=== PATIENT | female | born 1960 | race Caucasian/White ===

== ENCOUNTER → 2021-03-07 13:21 | Outpatient (BNVA) | payer OTHER, SELFPAY | PROVIDERS: PCP Internal Medicine; Visit Provider Hospitalist ==

== ENCOUNTER 2021-03-17 15:38 | Outpatient (REF) | payer OTHER, SELFPAY ==
--- NOTE | 2021-03-17 17:12 | PFT_ITS ---
Forced vital capacity, FEV1, KHJ03-07, and MVV are normal. Post bronchodilator therapy, there is no change. Total lung capacity and residual volume normal. Diffusion capacity slightly decreased. CONCLUSION: Normal pulmonary function test. No evidence of obstructive or restrictive pulmonary disorder. Slight decrease in diffusion capacity may be nonspecific or due to presence of pulmonary emphysema. Clinical correlation recommended. MD ABDULAZIZ Perez/GARCIA / [id number]
== END 2021-03-17 15:39 | disposition home or self-care (01) ==
LOC: HO.RESP 15:38
PROVIDERS: PCP Internal Medicine; Visit Provider Hospitalist
DX: R91.8 Other nonspecific abnormal finding of lung field (principal)
CPT/HCPCS: 94060; 94727; 94729

== ENCOUNTER → 2021-03-28 07:41 | Outpatient (BNVA) | payer OTHER, SELFPAY | PROVIDERS: PCP Internal Medicine; Visit Provider Surgery | DX: R91.1 Solitary pulmonary nodule (principal); J41.0 Simple chronic bronchitis; F17.210 Nicotine dependence, cigarettes, uncomplicated; Z79.899 Other long term (current) drug therapy | CPT/HCPCS: 99212 ==

== ENCOUNTER → 2021-07-16 09:43 | Outpatient (BNVA) | payer OTHER, SELFPAY | PROVIDERS: PCP Internal Medicine; Visit Provider Hospitalist ==

== ENCOUNTER → 2021-10-09 09:24 | Outpatient (BNVA) | payer OTHER, SELFPAY | PROVIDERS: PCP Internal Medicine; Visit Provider Hospitalist ==

== ENCOUNTER → 2021-11-14 10:02 | Outpatient (BNVA) | payer OTHER, SELFPAY | PROVIDERS: PCP Internal Medicine; Visit Provider Surgery | DX: C34.91 Malignant neoplasm of unspecified part of right bronchus or lung (principal); Z79.899 Other long term (current) drug therapy; Z79.4 Long term (current) use of insulin; Z87.891 Personal history of nicotine dependence | CPT/HCPCS: 99212 ==

== ENCOUNTER → 2022-01-05 10:04 | Outpatient (BNVA) | payer OTHER, SELFPAY | PROVIDERS: PCP Internal Medicine; Visit Provider Hospitalist | DX: R91.8 Other nonspecific abnormal finding of lung field (principal) ==

== ENCOUNTER → 2022-02-20 08:30 | Outpatient (BNVA) | payer OTHER, SELFPAY | PROVIDERS: PCP Internal Medicine; Visit Provider Surgery | DX: C34.91 Malignant neoplasm of unspecified part of right bronchus or lung (principal) | CPT/HCPCS: 99212 ==

== ENCOUNTER → 2022-07-17 10:43 | Outpatient (BNVA) | payer OTHER, SELFPAY | PROVIDERS: PCP Internal Medicine; Visit Provider Surgery | DX: C34.91 Malignant neoplasm of unspecified part of right bronchus or lung (principal) | CPT/HCPCS: 99212 ==

== ENCOUNTER → 2023-01-29 09:51 | Outpatient (BNVA) | payer OTHER, SELFPAY | PROVIDERS: PCP Internal Medicine; Visit Provider Hospitalist ==

== ENCOUNTER 2023-08-06 09:49 | Outpatient (AMB) | payer OTHER, SELFPAY ==
[2023-08-06 09:54] VITALS: BP 130/60; PULSE 90; O2SAT 96; BMI 38.4
--- NOTE | 2023-08-06 09:54 | A.OFFVIS_ITS ---
Intake Vital Signs 08/06/23 09:54 Height 5 ft 6 in Weight 238 lb BMI 38.4 BP 130/60 Blood Pressure Location Lt brachial Position Sitting Pulse 90 Pulse Source Pulse Oximeter Pulse Oximetry (%) 96 Oxygen Delivery Method Room Air Intake Visit Reasons: copd Intake Note: pt is here for follow up and states shortness of breath with exertion. Buildings And Grounds Director Required: No Allergies cephalexin Allergy (Severe, Verified 08/06/23 09:58) Swollen Tongue codeine Allergy (Severe, Verified 08/06/23 09:58) Nausea and Vomiting lisinopril Allergy (Severe, Verified 08/06/23 09:58) Swollen Tongue metformin Allergy (Severe, Verified 08/06/23 09:58) Swollen Tongue HPI HPI Comments History of Present Illness Details The Patient is a 63-year-old woman with a known history of tobacco dependency and pulmonary nodules. She had been doing very well. She has been participating in the lung cancer screening program for several years now at [facility]. More recently she had a CT scan of the chest demonstrating a new 1.1 cm right-sided pulmonary nodule that was concerning in appearance in size. Patient denied any significant symptoms as far as she is aware. Denies any coughing or any hemoptysis. She denies any weight loss or night sweats. Her appetite is still good. We personally reviewed her CT scan in the office I explained to her my concerns with the size the nodule in the appearance and based on the CT scan pictures in appears to be malignant process in to improving otherwise. Therefore at this point will request urgent pulmonary function studies and urgent PET scan. he these results reasonable been we will facilitate a surgical resection. 07/16/2021 the patient is here for a pulmonary follow-up visit. Since we spoke to patient did undergo right-sided lobectomy at [facility]. The patient tolerated surgery well. The pathology demonstrated squamous cell carcinoma. no evidence of any lymph node metastases. All the margins were negative which is reassuring. However, with some evidence of visceral pleura invasion. The patient is squamous cell carcinoma was not responsive to PDL1. She did follow-up with Oncology. At this point the decision was to not give chemotherapy and to monitor closely. The patient will undergo CT imaging of the chest every 6 months. Right now will plan to schedule the 1st follow-up CT scan for October 19- which would be 6 months from her PET scan. Patient was able to quit smoking altogether. However still struggle. She has not had any nicotine products the last month. At this point I encouraged her to continue pressing forward and avoiding any nicotine supplementation at this point she continues to use the Advair 500. her respiratory status is stable. She can continue that dose and we can reassess on her follow-up visit. 10/09/2021 the patient is here for pulmon [place] follow-up visit. The patient was exposed to COVID. After she started developing a cough productive in nature. She was treated with a antibiotic. The patient is no better. Now she is expectorating also feeling chest tightness and some wheezing. Indeed she does have some wheezing on examination. Likely has a COPD exacerbation due to the viral syndrome. In addition to that prior to getting sick she did have a CT scan of the chest to follow up with her pulmonary nodules. The patient is status post a right upper lobe lobectomy consistent with squamous cell carcinoma. It appeared that in the recent CT scan of the chest 1 of the nodular densities measuring 6 mm slightly increased now to 8 mm in size. This is in the right lower lobe posterior pleural-based area. All the other nodules were otherwise stable. Will resend the patient at the multidisciplinary rounds. In the meantime will plan to repeat the CT scan in 3 months. The patient also will be treated for a post fell bacterial infection with the COPD exacerbation as well. She also has a nebulizer she will use that as well. 01/05/2022 the patient is here for a pulmonary follow-up visit. Since we last spoke the patient did have a brief viral syndrome resulting in a COPD exacerbation. This is COVID negative. She had just recovered from COVID back September. The patient did have a repeat CT scan of the chest done in November to follow-up abnormalities noted on her previous CT scan done September. It appeare d that she has no significant changes based on her most recent CT scan from November. Therefore follow-up with a CT scan in 6 months time. The patient completed a course of prednisone. She has been doing well. Still having some shortness of breath but her oxygen levels have been reassuring in the high 90s. 07/17/2022 the patient is here for a pul monary follow-up visit. Overall the patient has been complaining of increasing chest tightness and congestion. She is also on notices some increased shortness of breath. She has been using Advair now for some time. It is partially helpful. She did have a recent CT scan of the chest just in the beginning of the month which demonstrated stable pulmonary nodules. She will follow-up with the thoracic surgeon later today. At this point does not appear that there is any worsening suspicious nodules. The patient will continue to have serial CT scans to further monitor. In addition to this, the CT scan also demonstrates some evidence of ground-glass opacities suggesting pneumonitis primarily in the upper lung zones. Typically this could be a hypersensitivity type of reaction. Appears to be more subacute since the patient is not very symptomatic. She is not aware of any mold exposure or any birds or pets. Although this likely something in her surrounding that is affecting her breathing. Will switch her inhaler to Trelegy. If the patient is no better will consider her blood work to assess for different etiologies for pneumonitis. 01/29/2023 the patient is here for a pulmonary follow-up visit. The patient overall is doing well. She continues on the Advair. She has been noticing some chest tightness and wheezing. Intermittently. She does use her rescue inhaler a couple times a week. The patient did undergo a CT scan of the [facility] recently [facility] I personally reviewed. She does have postoperative changes which are unchanged. She also has pulmonary nodules that are intermediate in size and also have not changed in 6 months. This is reassuring. The patient will continue to follow closely with the serial CT scan protocol for thoracic surgery. We the patient also will be optimized with respiratory therapy by switching her over to Trelegy once she completes her medications. Otherwise the patient follow-up in 6 to 8 months. If she has any issues prior to that she is to call the office for an earlier evaluation. 08/06/2023 the patient is here for a pulm onary follow-up visit. The patient has been complaining of increasing dyspnea on exertion. Moderate severity. Has been using the Advair that she finally ran out so will go ahead and switch over to Trelegy inhaler. She has not had a CT scan as of yet. Her last CT scan was back in June 2022. Will go ahead and request a CT scan at this time to follow-up with her history of lung cancer and also pulmonary nodules. She should be getting CT scan yearly. The patient does have some wheezing on examination. Will go ahead and optimize respiratory therapy. If she is no better I will prescribe her a steroid pack so she can take it see if there is any improvement. [facility] Medical History Adrenal adenoma COPD (chronic obstructive pulmonary disease) Depression Hyperlipidemia Hypertension Lung cancer (~2020) Neurodermatitis Obesity Personal history of nicotine dependence Pulmonary nodules Tubular adenoma of colon (~2006) Type 2 diabetes mellitus (~2002) Surgical History History of History of cataract surgery (~2020) History of colonoscopy History of endoscopy History of hemorrhoidectomy History of lobectomy of lung (~2020) Family History Father Lung cancer Mother Bladder cancer Other Lymphoma Social History (Reviewed 08/06/23 @ 09:59 by Fozia Young [facility]) Patient Tobacco Use Status: Former Tobacco user Quit Date: 04/14/2021 Tobacco use type: Cigarette Years Smoked: 44 years Quit 04/14/21 Review of Systems Const Denies lethargy, Denies malaise, Denies night sweats, Denies poor appetite and Denies weight loss ENT Denies change in voice, Denies lip swelling, Denies mouth pain, Denies nasal congestion, Denies nasal discharge and Denies tongue swelling Card Denies chest pain and Reports dyspnea on exertion Resp Denies change in phlegm color, Reports chest congestion, Reports cough, Reports dyspnea on exertion and Reports wheezing GI Denies abdominal pain Musc Denies no additional complaints Neuro Denies Neuro-related abnormal movements Psych Denies no additional complaints Edwin/Lymph Denies easy bleeding and Denies lymphadenopathy Aller/Immun Denies lip swelling, Denies tongue swelling and Reports wheezing Physical Exam Vital Signs: Last Vital Signs Pulse 90 08/06/23 09:54 BP 130/60 08/06/23 09:54 Pulse Ox 96 08/06/23 09:54 Oxygen Delivery Method Room Air 08/06/23 09:54 BMI result Body Mass Index 38.4 Const General: alert Neck Neck: Yes normal visual inspection, Yes full ROM and Yes no lymphadenopathy Chest Chest palpation & inspection: normal inspection of the chest Resp Auscultation: wheezes and diminished lung sounds Cardio Rate: regular rate Rhythm: regular rhythm Heart sounds: S1 normal heart sound present and S2 normal heart sound present GI Palpation (GI): Soft to palpation and nontender Auscultation: normal bowel sounds Skin General skin exam: rashes and/or lesions noted Assessment & Plan Assessment & Plan (1) Pulmonary nodules: Code(s): R91.8 - Other nonspecific abnormal finding of lung field (2) COPD (chronic obstructive pulmonary disease): Code(s): J44.9 - Chronic obstructive pulmonary disease, unspecified Qualifiers: COPD type: chronic bronchitis Chronic bronchitis type: simple Qualified Code(s): J41.0 - Simple chronic bronchitis (3) Lung cancer: Onset Date: ~2020 Comment: (Squamous Cell Carcinoma - pT2a pN0 - Stage Ib- s/p RUL lobectomy 04/2021) Code(s): C34.90 - Malignant neoplasm of unspecified part of unspecified bronchus or lung Qualifiers: Laterality: right Lung location: unspecified part of lung Qualified Code(s): C34.91 - Malignant neoplasm of unspecified part of right bronchus or lung Plan start Trelegy 200 start medrol pack if no better KAVEH as needed Has a nebulizer CT chest [facility] continue smoking cessation F/U 4 months Orders: Orders CT chest wo IV con Today C34.91 - Malignant neoplasm of unspecified part of right bronchus or lung, R91.8 - Other nonspecific abnormal finding of lung field Medications: New hbtrvyjejkr-aszqitgfx-xyjatoll 200-62.5-25 mcg (Trelegy Ellipta) 1 inh inhalation DAILY 90 days 3 ea 3RF methylprednisolone (Medrol (Teodoro)) PO PER PKG DIR 6 days 21 ea 0RF Coding Level of Care Code Est Pt Level 4 (34530) Diagnoses Pulmonary nodules R91.8 Simple chronic bronchitis J41.0 COPD type: chronic bronchitis Chronic bronchitis type: simple Malignant neoplasm of right lung, unspecified part of lung C34.91 Laterality: right Lung location: unspecified part of lung Time Spent (min) 16
== END 2023-08-06 10:40 | disposition home or self-care (01) ==
PROVIDERS: PCP Internal Medicine; Visit Provider Hospitalist
DX: R91.8 Other nonspecific abnormal finding of lung field (principal); J41.0 Simple chronic bronchitis; C34.91 Malignant neoplasm of unspecified part of right bronchus or lung
CPT/HCPCS: 99214

== ENCOUNTER → 2023-08-06 09:49 | Outpatient (BNVA) | payer OTHER, SELFPAY | PROVIDERS: PCP Internal Medicine; Visit Provider Hospitalist ==

== ENCOUNTER 2023-12-08 09:21 | Outpatient (AMB) | payer OTHER, SELFPAY ==
[2023-12-08 09:30] VITALS: PULSE 92; O2SAT 93; BMI 37.9
--- NOTE | 2023-12-08 09:30 | MHC.OFFVIS ---
Intake Vital Signs 12/08/23 09:30 Height 5 ft 6 in Weight 235 lb BMI 37.9 Pulse 92 Pulse Source Pulse Oximeter Pulse Oximetry (%) 93 Oxygen Delivery Method Room Air Intake Visit Reasons: copd Key Entry Operator Required: No Allergies cephalexin Allergy (Severe, Verified 12/08/23 09:31) Swollen Tongue codeine Allergy (Severe, Verified 12/08/23 09:31) Nausea and Vomiting lisinopril Allergy (Severe, Verified 12/08/23 09:31) Swollen Tongue metformin Allergy (Severe, Verified 12/08/23 09:31) Swollen Tongue HPI HPI Comments History of Present Illness Details The Patient is a 63-year-old woman with a known history of tobacco dependency and pulmonary nodules. She had been doing very well. She has been participating in the lung cancer screening program for several years now at [facility]. More recently she had a CT scan of the chest demonstrating a new 1.1 cm right-sided pulmonary nodule that was concerning in appearance in size. Patient denied any significant symptoms as far as she is aware. Denies any coughing or any hemoptysis. She denies any weight loss or night sweats. Her appetite is still good. We personally reviewed her CT scan in the office I explained to her my concerns with the size the nodule in the appearance and based on the CT scan pictures in appears to be malignant process in to improving otherwise. Therefore at this point will request urgent pulmonary function studies and urgent PET scan. he these results reasonable been we will facilitate a surgical resection. 07/16/2021 the patient is here for a pulmonary follow-up visit. Since we spoke to patient did undergo right-sided lobectomy at [facility]. The patient tolerated surgery well. The pathology demonstrated squamous cell carcinoma. no evidence of any lymph node metastases. All the margins were negative which is reassuring. However, with some evidence of visceral pleura invasion. The patient is squamous cell carcinoma was not responsive to PDL1. She did follow-up with Oncology. At this point the decision was to not give chemotherapy and to monitor closely. The patient will undergo CT imaging of the chest every 6 months. Right now will plan to schedule the 1st follow-up CT scan for October 19- which would be 6 months from her PET scan. Patient was able to quit smoking altogether. However still struggle. She has not had any nicotine products the last month. At this point I encouraged her to continue pressing forward and avoiding any nicotine supplementation at this point she continues to use the Advair 500. her respiratory status is stable. She can continue that dose and we can reassess on her follow-up visit. 10/09/2021 the patient is here for pulmonary follow-up visit. The patient was exposed to COVID. After she started developing a cough productive in nature. She was treated with a antibiotic. The patient is no better. Now she is expectorating also feeling chest tightness and some wheezing. Indeed she does have some wheezing on examination. Likely has a COPD exacerbation due to the viral syndrome. In addition to that prior to getting sick she did have a CT scan of the chest to follow up with her pulmonary nodules. The patient is status post a right upper lobe lobectomy consistent with squamous cell carcinoma. It appeared that in the recent CT scan of the chest 1 of the nodular densities measuring 6 mm slightly increased now to 8 mm in size. This is in the right lower lobe posterior pleural-based area. All the other nodules were otherwise stable. Will resend the patient at the multidisciplinary rounds. In the meantime will plan to repeat the CT scan in 3 months. The patient also will be treated for a post fell bacterial infection with the COPD exacerbation as well. She also has a nebulizer she will use that as well. 01/05/2022 the patient is here for a pulmonary follow-up visit. Since we last spoke the patient did have a brief viral syndrome resulting in a COPD exacerbation. This is COVID negative. She had just recovered from COVID back September. The patient did have a repeat CT scan of the chest done in November to follow-up abnormalities noted on her previous CT scan done September. It appeared that she has no significant changes based on her most recent CT scan from November. Therefore follow-up with a CT scan in 6 months time. The patient completed a course of prednisone. She has been doing well. Still having some shortness of breath but her oxygen levels have been reassuring in the high 90s. 07/17/2022 the patient is here for a pulmonary follow-up visit. Overall the patient has been complaining of increasing chest tightness and congestion. She is also on notices some increased shortness of breath. She has been using Advair now for some time. It is partially helpful. She did have a recent CT scan of the chest just in the beginning of the month which demonstrated stable pulmonary nodules. She will follow-up with the thoracic surgeon later today. At this point does not appear that there is any worsening suspicious nodules. The patient will continue to have serial CT scans to further monitor. In addition to this, the CT scan also demonstrates some evidence of ground-glass opacities suggesting pneumonitis primarily in the upper lung zones. Typically this could be a hypersensitivity type of reaction. Appears to be more subacute since the patient is not very symptomatic. She is not aware of any mold exposure or any birds or pets. Although this likely something in her surrounding that is affecting her breathing. Will switch her inhaler to Trelegy. If the patient is no better will consider her blood work to assess for different etiologies for pneumonitis. 01/29/2023 the patient is here for a pulmonary follow-up visit. The patient overall is doing well. She continues on the Advair. She has been noticing some chest tightness and wheezing. Intermittently. She does use her rescue inhaler a couple times a week. The patient did undergo a CT scan of the chest recently [facility] I personally reviewed. She does have postoperative changes which are unchanged. She also has pulmonary nodules that are intermediate in size and also have not changed in 6 months. This is reassuring. The patient will continue to follow closely with the serial CT scan protocol for thoracic surgery. We the patient also will be optimized with respiratory therapy by switching her over to Trelegy once she completes her medications. Otherwise the patient follow-up in 6 to 8 months. If she has any issues prior to that she is to call the office for an earlier evaluation. 08/06/2023 the patient is here for a pulmonary follow-up visit. The patient has been complaining of increasing dyspnea on exertion. Moderate severity. Has been using the Advair that she finally ran out so will go ahead and switch over to Trelegy inhaler. She has not had a CT scan as of yet. Her last CT scan was back in June 2022. Will go ahead and request a CT scan at this time to follow-up with her history of lung cancer and also pulmonary nodules. She should be getting CT scan yearly. The patient does have some wheezing on examination. Will go ahead and optimize respiratory therapy. If she is no better I will prescribe her a steroid pack so she can take it see if there is any improvement. 12/08/2023 the patient is here for pulmonary follow-up visit. Overall she is doing well. She continues on the Trelegy inhaler. Does have some dyspnea on exertion but mild in severity. Seems to be doing better. She does limit her activity but is mainly due to her back and other musculoskeletal issues. The patient's last CT scan was back in August 2022 which was personally by me. The patient did have postoperative changes and had does have pulmonary nodules that were following. She also has some areas of ground-glass opacity started on right more than left. They appeared to be stable when compared to her previous CT scan. I wonder decide just postoperative changes will continue to see if there is any progression of these ground-glass areas. The patient is next CT scan will be in January which would be 6 months after her last 1 as we are following closely for any recurrent lung cancer. She is now 3 years cancer-free and will continue to monitor her CT scans every 6 months for a total of 5 years after diagnosis. [facility] Medical History Adrenal adenoma COPD (chronic obstructive pulmonary disease) Depression Hyperlipidemia Hypertension Lung cancer (~2020) Neurodermatitis Obesity Personal history of nicotine dependence Pulmonary nodules Tubular adenoma of colon (~2006) Type 2 diabetes mellitus (~2002) Surgical History History of History of cataract surgery (~2020) History of colonoscopy History of endoscopy History of hemorrhoidectomy History of lobectomy of lung (~2020) Family History Father Lung cancer Mother Bladder cancer Other Lymphoma Social History Patient Tobacco Use Status: Former Tobacco user Quit Date: 04/14/2021 Tobacco use type: Cigarette Years Smoked: 44 years Quit 04/14/21 Review of Systems Const Denies lethargy, Denies malaise, Denies night sweats, Denies poor appetite and Denies weight loss ENT Denies change in voice, Denies lip swelling, Denies mouth pain, Denies nasal congestion, Denies nasal discharge and Denies tongue swelling Card Denies chest pain and Reports dyspnea on exertion Resp Denies change in phlegm color, Reports chest congestion, Reports cough, Reports dyspnea on exertion and Reports wheezing GI Denies abdominal pain Musc Denies no additional complaints Neuro Denies Neuro-related abnormal movements Psych Denies no additional complaints Edwin/Lymph Denies easy bleeding and Denies lymphadenopathy Aller/Immun Denies lip swelling, Denies tongue swelling and Reports wheezing Physical Exam Vital Signs: Last Vital Signs Pulse 92 12/08/23 09:30 Pulse Ox 93 12/08/23 09:30 Oxygen Delivery Method Room Air 12/08/23 09:30 BMI result Body Mass Index 37.9 Const General: alert Neck Neck: Yes normal visual inspection, Yes full ROM and Yes no lymphadenopathy Chest Chest palpation & inspection: normal inspection of the chest Resp Auscultation: no wheezes and diminished lung sounds Cardio Rate: regular rate Rhythm: regular rhythm Heart sounds: S1 normal heart sound present and S2 normal heart sound present GI Palpation (GI): Soft to palpation and nontender Auscultation: normal bowel sounds Skin General skin exam: rashes and/or lesions noted Assessment & Plan Assessment & Plan (1) Pulmonary nodules: Code(s): R91.8 - Other nonspecific abnormal finding of lung field (2) COPD (chronic obstructive pulmonary disease): Code(s): J44.9 - Chronic obstructive pulmonary disease, unspecified Qualifiers: COPD type: chronic bronchitis Chronic bronchitis type: simple Qualified Code(s): J41.0 - Simple chronic bronchitis (3) Lung cancer: Onset Date: ~2020 Comment: (Squamous Cell Carcinoma - pT2a pN0 - Stage Ib- s/p RUL lobectomy 04/2021) Code(s): C34.90 - Malignant neoplasm of unspecified part of unspecified bronchus or lung Qualifiers: Laterality: right Lung location: unspecified part of lung Qualified Code(s): C34.91 - Malignant neoplasm of unspecified part of right bronchus or lung Plan continue Trelegy [address] 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
== END 2023-12-08 10:08 | disposition home or self-care (01) ==
PROVIDERS: PCP Internal Medicine; Visit Provider Hospitalist
DX: R91.8 Other nonspecific abnormal finding of lung field (principal); J41.0 Simple chronic bronchitis; C34.91 Malignant neoplasm of unspecified part of right bronchus or lung
CPT/HCPCS: 99214

== ENCOUNTER → 2023-12-08 09:21 | Outpatient (BNVA) | payer OTHER, SELFPAY | PROVIDERS: PCP Internal Medicine; Visit Provider Hospitalist | DX: C34.91 Malignant neoplasm of unspecified part of right bronchus or lung (principal); R91.8 Other nonspecific abnormal finding of lung field ==

== ENCOUNTER 2024-06-09 09:37 | Outpatient (AMB) | payer OTHER, SELFPAY ==
--- NOTE | 2024-06-09 09:53 | A.OFFVIS_ITS ---
Vital Signs 06/09/24 09:56 Height 5 ft 6 in Weight 207 lb BMI 33.4 BP 120/60 Blood Pressure Location Lt brachial Position Sitting Pulse 85 Pulse Source Pulse Oximeter Pulse Oximetry (%) 99 Oxygen Delivery Method Room Air Intake Visit Reasons: COPD Photograph Printer Required: No Allergies cephalexin Allergy (Severe, Verified 06/09/24 09:53) Swollen Tongue codeine Allergy (Severe, Verified 06/09/24 09:53) Nausea and Vomiting lisinopril Allergy (Severe, Verified 06/09/24 09:53) Swollen Tongue metformin Allergy (Severe, Verified 06/09/24 09:53) Swollen Tongue HPI Comments Details: The Patient is a 64-year-old woman with a known history of tobacco dependency and pulmonary nodules. She had been doing very well. She has been participating in the lung cancer screening program for several years now at [facility]. More recently she had a CT scan of the chest demonstrating a new 1.1 cm right-sided pulmonary nodule that was concerning in appearance in size. Patient denied any significant symptoms as far as she is aware. Denies any coughing or any hemoptysis. She denies any weight loss or night sweats. Her appetite is still good. We personally reviewed her CT scan in the office I explained to her my concerns with the size the nodule in the appearance and based on the CT scan pictures in appears to be malignant process in to improving otherwise. Therefore at this point will request urgent pulmonary function studies and urgent PET scan. he these results reasonable been we will facilitate a surgical resection. 07/16/2021 the patient is here for a pulmonary follow-up visit. Since we spoke to patient did undergo right-sided lobectomy at [facility]. The patient tolerated surgery well. The pathology demonstrated squamous cell carcinoma. no evidence of any lymph node metastases. All the margins were negative which is reassuring. However, with some evidence of visceral pleura invasion. The patient is squamous cell carcinoma was not responsive to PDL1. She did follow-up with Oncology. At this point the decision was to not give chemotherapy and to monitor closely. The patient will undergo CT imaging of the chest every 6 months. Right now will plan to schedule the 1st follow-up CT scan for October 19- which would be 6 months from her PET scan. Patient was able to quit smoking altogether. However still struggle. She has not had any nicotine products the last month. At this point I encouraged her to continue pressing forward and avoiding any nicotine supplementation at this point she continues to use the Advair 500. her respiratory status is stable. She can continue that dose and we can reassess on her follow-up visit. 10/09/2021 the patient is here for pulmonary follow-up visit. The patient was exposed to COVID. After she started developing a cough productive in nature. She was treated with a antibiotic. The patient is no better. Now she is expectorating also feeling chest tightness and some wheezing. Indeed she does have some wheezing on examination. Likely has a COPD exacerbation due to the viral syndrome. In addition to that prior to getting sick she did have a CT scan of the chest to follow up with her pulmonary nodules. The patient is status post a right upper lobe lobectomy consistent with squamous cell carcinoma. It appeared that in the recent CT scan of the chest 1 of the nodular densities measuring 6 mm slightly increased now to 8 mm in size. This is in the right lower lobe posterior pleural-based area. All the other nodules were otherwise stable. Will resend the patient at the multidisciplinary rounds. In the meantime will plan to repeat the CT scan in 3 months. The patient also will be treated for a post fell bacterial infection with the COPD exacerbation as well. She also has a nebulizer she will use that as well. 01/05/2022 the patient is here for a pulmonary follow-up visit. Since we last spoke the patient did have a brief viral syndrome resulting in a COPD exacerbation. This is COVID negative. She had just recovered from COVID back September. The patient did have a repeat CT scan of the chest done in November to follow-up abnormalities noted on her previous CT scan done September. It appeared that she has no significant changes based on her most recent CT scan from November. Therefore follow-up with a CT scan in 6 months time. The patient completed a course of prednisone. She has been doing well. Still having some shortness of breath but her oxygen levels have been reassuring in the high 90s. 07/17/2022 the patient is here for a pulmonary follow-up visit. Overall the patient has been complaining of increasing chest tightness and congestion. She is also on notices some increased shortness of breath. She has been using Advair now for some time. It is partially helpful. She did have a recent CT scan of the chest just in the beginning of the month which demonstrated stable pulmonary nodules. She will follow-up with the thoracic surgeon later today. At this point does not appear that there is any worsening suspicious nodules. The patient will continue to have serial CT scans to further monitor. In addition to this, the CT scan also demonstrates some evidence of ground-glass opacities suggesting pneumonitis primarily in the upper lung zones. Typically this could be a hypersensitivity type of reaction. Appears to be more subacute since the patient is not very symptomatic. She is not aware of any mold exposure or any birds or pets. Although this likely something in her surrounding that is affecting her breathing. Will switch her inhaler to Trelegy. If the patient is no better will consider her blood work to assess for different etiologies for pneumonitis. 01/29/2023 the patient is here for a pulmonary follow-up visit. The patient overall is doing well. She continues on the Advair. She has been noticing some chest tightness and wheezing. Intermittently. She does use her rescue inhaler a couple times a week. The patient did undergo a CT scan of the chest recently [facility] I personally reviewed. She does have postoperative changes which are unchanged. She also has pulmonary nodules that are intermediate in size and also have not changed in 6 months. This is reassuring. The patient will continue to follow closely with the serial CT scan protocol for thoracic surgery. We the patient also will be optimized with respiratory therapy by switching her over to Trelegy once she completes her medications. Otherwise the patient follow-up in 6 to 8 months. If she has any issues prior to that she is to call the office for an earlier evaluation. 08/06/2023 the patient is here for a pulmonary follow-up visit. The patient has been complaining of increasing dyspnea on exertion. Moderate severity. Has been using the Advair that she finally ran out so will go ahead and switch over to Trelegy inhaler. She has not had a CT scan as of yet. Her last CT scan was back in June 2022. Will go ahead and request a CT scan at this time to follow-up with her history of lung cancer and also pulmonary nodules. She should be getting CT scan yearly. The patient does have some wheezing on examination. Will go ahead and optimize respiratory therapy. If she is no better I will prescribe her a steroid pack so she can take it see if there is any improvement. 12/08/2023 the patient is here for pulmonary follow-up visit. Overall she is doing well. She continues on the Trelegy inhaler. Does have some dyspnea on exertion but mild in severity. Seems to be doing better. She does limit her activity but is mainly due to her back and other musculoskeletal issues. The patient's last CT scan was back in August 2022 which was personally by me. The patient did have postoperative changes and had does have pulmonary nodules that were following. She also has some areas of ground-glass opacity started on right more than left. They appeared to be stable when compared to her previous CT scan. I wonder decide just postoperative changes will continue to see if there is any progression of these ground-glass areas. The patient is next CT scan will be in January which would be 6 months after her last 1 as we are following closely for any recurrent lung cancer. She is now 3 years cancer-free and will continue to monitor her CT scans every 6 months for a total of 5 years after diagnosis. 06/09/2024 the patient is here for a pulmonary follow-up visit. The patient overall has been doing well. She continues with the current respiratory therapy. Denies any chest pains or shortness of breath. She did have a CT scan back in 02/17/2024 demonstrating stable postoperative changes without any recurrence of lung cancer. Will continue to follow her CT scans every 6 months for 5 years. She has now been 3 years free of cancer. [facility] Medical History Adrenal adenoma COPD (chronic obstructive pulmonary disease) Depression Hyperlipidemia Hypertension Lung cancer (~2020) Neurodermatitis Obesity Personal history of nicotine dependence Pulmonary nodules Tubular adenoma of colon (~2006) Type 2 diabetes mellitus (~2002) Surgical History History of History of cataract surgery (~2020) History of colonoscopy History of endoscopy History of hemorrhoidectomy History of lobectomy of lung (~2020) Family History Father Lung cancer Mother Bladder cancer Other Lymphoma Social History Patient Tobacco Use Status: Former Tobacco user Tobacco use type: Cigarette Years Smoked: 44 years Quit 04/14/21 Review of Systems Const Denies lethargy, Denies malaise, Denies night sweats, Denies poor appetite and Denies weight loss ENT Denies change in voice, Denies lip swelling, Denies mouth pain, Denies nasal congestion, Denies nasal discharge and Denies tongue swelling Card Denies chest pain and Reports dyspnea on exertion Resp Denies change in phlegm color, Reports chest congestion, Reports cough, Reports dyspnea on exertion and Reports wheezing GI Denies abdominal pain Musc Denies no additional complaints Neuro Denies Neuro-related abnormal movements Psych Denies no additional complaints Edwin/Lymph Denies easy bleeding and Denies lymphadenopathy Aller/Immun Denies lip swelling, Denies tongue swelling and Reports wheezing Physical Exam Vital Signs: Last Vital Signs Pulse 85 06/09/24 09:56 BP 120/60 06/09/24 09:56 Pulse Ox 99 06/09/24 09:56 Oxygen Delivery Method Room Air 06/09/24 09:56 BMI result Body Mass Index 33.4 Resp Effort & Inspection: normal respiratory effort Auscultation: clear to auscultation bilaterally Office Procedures Flu Questionnaire Does the patient have a severe egg allergy?: No Does the patient have severe life threatening allergies?: No Does the patient have a fever or illness today?: No Has the patient ever had Guillain-Hewett Syndrome?: No Has the patient ever had any past reaction to a flu shot?: No Assessment & Plan Assessment & Plan (1) Pulmonary nodules: Code(s): R91.8 - Other nonspecific abnormal finding of lung field Category: Medical (2) COPD (chronic obstructive pulmonary disease): Code(s): J44.9 - Chronic obstructive pulmonary disease, unspecified Category: Medical Qualifiers: COPD type: chronic bronchitis Chronic bronchitis type: simple Qualif ied Code(s): J41.0 - Simple chronic bronchitis (3) Lung cancer: Onset Date: ~2020 Comment: (Squamous Cell Carcinoma - pT2a pN0 - Stage Ib- s/p RUL lobectomy 04/2021) Code(s): C34.90 - Malignant neoplasm of unspecified part of unspecified bronchus or lung Category: Medical Qualifiers: Laterality: right Lung location: unspecified part of lung Qualified Code(s): C34.91 - Malignant neoplasm of unspecified part of right bronchus or lung Plan continue Trelegy [address] 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
[2024-06-09 09:56] VITALS: BP 120/60; PULSE 85; O2SAT 99; BMI 33.4
== END 2024-06-09 10:24 | disposition home or self-care (01) ==
PROVIDERS: PCP Internal Medicine; Visit Provider Hospitalist
DX: R91.8 Other nonspecific abnormal finding of lung field (principal); J41.0 Simple chronic bronchitis; Z85.118 Personal history of other malignant neoplasm of bronchus and lung
CPT/HCPCS: 99214

== ENCOUNTER → 2024-06-09 | Outpatient (BNVA) | payer OTHER, SELFPAY | PROVIDERS: PCP Internal Medicine; Visit Provider Hospitalist | DX: R91.8 Other nonspecific abnormal finding of lung field (principal); C34.91 Malignant neoplasm of unspecified part of right bronchus or lung; J41.0 Simple chronic bronchitis; Z23 Encounter for immunization | CPT/HCPCS: 90471; 90656 ==

== ENCOUNTER 2024-12-11 09:50 | Outpatient (AMB) | payer OTHER, SELFPAY ==
[2024-12-11 09:55] VITALS: BP 136/72; PULSE 87; O2SAT 98; BMI 33.4
--- NOTE | 2024-12-11 09:55 | MHC.OFFVIS ---
Vital Signs 12/11/24 09:55 Height 5 ft 6 in Weight 207 lb 3.752 oz BMI 33.4 BP 136/72 Blood Pressure Location Rt brachial Position Sitting Pulse 87 Pulse Source Pulse Oximeter Pulse Oximetry (%) 98 Oxygen Delivery Method Room Air Intake Visit Reasons: COPD Allergies cephalexin Allergy (Severe, Verified 12/11/24 10:00) Swollen Tongue codeine Allergy (Severe, Verified 12/11/24 10:00) Nausea and Vomiting lisinopril Allergy (Severe, Verified 12/11/24 10:00) Swollen Tongue metformin Allergy (Severe, Verified 12/11/24 10:00) Swollen Tongue HPI Comments Details: The Patient is a 64-year-old woman with a known history of tobacco dependency and pulmonary nodules. She had been doing very well. She has been participating in the lung cancer screening program for several years now at [facility]. More recently she had a CT scan of the chest demonstrating a new 1.1 cm right-sided pulmonary nodule that was concerning in appearance in size. Patient denied any significant symptoms as far as she is aware. Denies any coughing or any hemoptysis. She denies any weight loss or night sweats. Her appetite is still good. We personally reviewed her CT scan in the office I explained to her my concerns with the size the nodule in the appearance and based on the CT scan pictures in appears to be malignant process in to improving otherwise. Therefore at this point will request urgent pulmonary function studies and urgent PET scan. he these results reasonable been we will facilitate a surgical resection. 07/16/2021 the patient is here for a pulmonary follow-up visit. Since we spoke to patient did undergo right-sided lobectomy at [facility]. The patient tolerated surgery well. The pathology demonstrated squamous cell carcinoma. no evidence of any lymph node metastases. All the margins were negative which is reassuring. However, with some evidence of visceral pleura invasion. The patient is squamous cell carcinoma was not responsive to PDL1. She did follow-up with Oncology. At this point the decision was to not give chemotherapy and to monitor closely. The patient will undergo CT imaging of the chest every 6 months. Right now will plan to schedule the 1st follow-up CT scan for October 19- which would be 6 months from her PET scan. Patient was able to quit smoking altogether. However still struggle. She has not had any nicotine products the last month. At this point I encouraged her to continue pressing forward and avoiding any nicotine supplementation at this point she continues to use the Advair 500. her respiratory status is stable. She can continue that dose and we can reassess on her follow-up visit. 10/09/2021 the patient is here for pulmonary follow-up visit. The patient was exposed to COVID. After she started developing a cough productive in nature. She was treated with a antibiotic. The patient is no better. Now she is expectorating also feeling chest tightness and some wheezing. Indeed she does have some wheezing on examination. Likely has a COPD exacerbation due to the viral syndrome. In addition to that prior to getting sick she did have a CT scan of the chest to follow up with her pulmonary nodules. The patient is status post a right upper lobe lobectomy consistent with squamous cell carcinoma. It appeared that in the recent CT scan of the chest 1 of the nodular densities measuring 6 mm slightly increased now to 8 mm in size. This is in the right lower lobe posterior pleural-based area. All the other nodules were otherwise stable. Will resend the patient at the multidisciplinary rounds. In the meantime will plan to repeat the CT scan in 3 months. The patient also will be treated for a post fell bacterial infection with the COPD exacerbation as well. She also has a nebulizer she will use that as well. 01/05/2022 the patient is here for a pulmonary follow-up visit. Since we last spoke the patient did have a brief viral syndrome resulting in a COPD exacerbation. This is COVID negative. She had just recovered from COVID back September. The patient did have a repeat CT scan of the chest done in November to follow-up abnormalities noted on her previous CT scan done September. It appeared that she has no significant changes based on her most recent CT scan from November. Therefore follow-up with a CT scan in 6 months time. The patient completed a course of prednisone. She has been doing well. Still having some shortness of breath but her oxygen levels have been reassuring in the high 90s. 07/17/2022 the patient is here for a pulmonary follow-up visit. Overall the patient has been complaining of increasing chest tightness and congestion. She is also on notices some increased shortness of breath. She has been using Advair now for some time. It is partially helpful. She did have a recent CT scan of the chest just in the beginning of the month which demonstrated stable pulmonary nodules. She will follow-up with the thoracic surgeon later today. At this point does not appear that there is any worsening suspicious nodules. The patient will continue to have serial CT scans to further monitor. In addition to this, the CT scan also demonstrates some evidence of ground-glass opacities suggesting pneumonitis primarily in the upper lung zones. Typically this could be a hypersensitivity type of reaction. Appears to be more subacute since the patient is not very symptomatic. She is not aware of any mold exposure or any birds or pets. Although this likely something in her surrounding that is affecting her breathing. Will switch her inhaler to Trelegy. If the patient is no better will consider her blood work to assess for different etiologies for pneumonitis. 01/29/2023 the patient is here for a pulmonary follow-up visit. The patient overall is doing well. She continues on the Advair. She has been noticing some chest tightness and wheezing. Intermittently. She does use her rescue inhaler a couple times a week. The patient did undergo a CT scan of the chest recently [facility] I personally reviewed. She does have postoperative changes which are unchanged. She also has pulmonary nodules that are intermediate in size and also have not changed in 6 months. This is reassuring. The patient will continue to follow closely with the serial CT scan protocol for thoracic surgery. We the patient also will be optimized with respiratory therapy by switching her over to Trelegy once she completes her medications. Otherwise the patient follow-up in 6 to 8 months. If she has any issues prior to that she is to call the office for an earlier evaluation. 08/06/2023 the patient is here for a pulmonary follow-up visit. The patient has been complaining of increasing dyspnea on exertion. Moderate severity. Has been using the Advair that she finally ran out so will go ahead and switch over to Trelegy inhaler. She has not had a CT scan as of yet. Her last CT scan was back in June 2022. Will go ahead and request a CT scan at this time to follow-up with her history of lung cancer and also pulmonary nodules. She should be getting CT scan yearly. The patient does have some wheezing on examination. Will go ahead and optimize respiratory therapy. If she is no better I will prescribe her a steroid pack so she can take it see if there is any improvement. 12/08/2023 the patient is here for pulmonary follow-up visit. Overall she is doing well. She continues on the Trelegy inhaler. Does have some dyspnea on exertion but mild in severity. Seems to be doing better. She does limit her activity but is mainly due to her back and other musculoskeletal issues. The patient's last CT scan was back in August 2022 which was personally by me. The patient did have postoperative changes and had does have pulmonary nodules that were following. She also has some areas of ground-glass opacity started on right more than left. They appeared to be stable when compared to her previous CT scan. I wonder decide just postoperative changes will continue to see if there is any progression of these ground-glass areas. The patient is next CT scan will be in January which would be 6 months after her last 1 as we are following closely for any recurrent lung cancer. She is now 3 years cancer-free and will continue to monitor her CT scans every 6 months for a total of 5 years after diagnosis. 06/09/2024 the patient is here for a pulmonary follow-up visit. The patient overall has been doing well. She continues with the current respiratory therapy. Denies any chest pains or shortness of breath. She did have a CT scan back in 02/17/2024 demonstrating stable postoperative changes without any recurrence of lung cancer. Will continue to follow her CT scans every 6 months for 5 years. She has now been 3 years free of cancer. 12/11/2024 the patient is here for a pulmonary follow-up visit. Overall she is doing well from a respiratory status. He continues on the Trelegy. Her last CT scan of the chest was back in July 2024 which we personally reviewed. Pulmonary nodules and postoperative changes are stable. Although it does document that she has severe coronary artery calcifications. Explained to her that this is stable atherosclerosis but the patient does have symptoms of dyspnea. In view of those symptoms important to make sure that she has a cardiac evaluation. I will go ahead and put a referral in to Cardiology. In addition to this the patient is having some daytime drowsiness. She has noticed some lower extremity edema. She does have snoring per report of her . She does wake up tired with an [place] score of 11/24. She was scheduled for in-lab sleep study but she had a hard time doing that. Therefore request a home sleep study at this time that we more effective for her. [facility] Medical History (Updated 12/11/24 @ 20:20 by Jim Mcgrath MD) Dyspnea Coronary artery calcification Personal history of nicotine dependence Lung cancer (~2020) Adrenal adenoma Tubular adenoma of colon (~2006) Depression Neurodermatitis Obesity Type 2 diabetes mellitus (~2002) Hyperlipidemia Hypertension COPD (chronic obstructive pulmonary disease) Pulmonary nodules Surgical History History of lobectomy of lung (~2020) History of endoscopy History of cataract surgery (~2020) History of hemorrhoidectomy History of colonoscopy History of Family History Father Lung cancer Mother Bladder cancer Other Lymphoma Social History Patient Tobacco Use Status: Former Tobacco user Tobacco use type: Cigarette Years Smoked: 44 years Quit 04/14/21 Review of Systems Const Denies lethargy, Denies malaise, Denies night sweats, Denies poor appetite and Denies weight loss ENT Denies change in voice, Denies lip swelling, Denies mouth pain, Denies nasal congestion, Denies nasal discharge and Denies tongue swelling Card Denies chest pain and Reports dyspnea on exertion Resp Denies change in phlegm color, Reports chest congestion, Reports cough, Reports dyspnea on exertion and Reports wheezing GI Denies abdominal pain Musc Denies no additional complaints Neuro Denies Neuro-related abnormal movements Psych Denies no additional complaints Edwin/Lymph Denies easy bleeding and Denies lymphadenopathy Aller/Immun Denies lip swelling, Denies tongue swelling and Reports wheezing Physical Exam Vital Signs: Last Vital Signs Pulse 87 12/11/24 09:55 BP 136/72 12/11/24 09:55 Pulse Ox 98 12/11/24 09:55 Oxygen Delivery Method Room Air 12/11/24 09:55 BMI result Body Mass Index 33.4 Const General: alert Neck Neck: Yes normal visual inspection, Yes full ROM and Yes no lymphadenopathy Chest Chest palpation & inspection: normal inspection of the chest Resp Auscultation: no wheezes and diminished lung sounds Cardio Rate: regular rate Rhythm: regular rhythm Heart sounds: S1 normal heart sound present and S2 normal heart sound present GI Palpation (GI): Soft to palpation and nontender Auscultation: normal bowel sounds Skin General skin exam: rashes and/or lesions noted Assessment & Plan Assessment & Plan (1) Pulmonary nodules: Code(s): R91.8 - Other nonspecific abnormal finding of lung field Category: Medical (2) COPD (chronic obstructive pulmonary disease): Code(s): J44.9 - Chronic obstructive pulmonary disease, unspecified Category: Medical Qualifiers: COPD type: chronic bronchitis Chronic bronchitis type: simple Qualified Code(s): J41.0 - Simple chronic bronchitis (3) Lung cancer: Onset Date: ~2020 Comment: (Squamous Cell Carcinoma - pT2a pN0 - Stage Ib- s/p RUL lobectomy 04/2021) Code(s): C34.90 - Malignant neoplasm of unspecified part of unspecified bronchus or lung Category: Medical Qualifiers: Laterality: right Lung location: unspecified part of lung Qualified Code(s): C34.91 - Malignant neoplasm of unspecified part of right bronchus or lung (4) Coronary artery calcification: Code(s): I25.10 - Atherosclerotic heart disease of [place] coronary artery without angina pectoris Category: Medical (5) Dyspnea: Code(s): R06.00 - Dyspnea, unspecified Category: Medical Qualifiers: Dyspnea type: dyspnea on exertion Qualified Code(s): R06.09 - Other forms of dyspnea Plan continue Trelegy [address] 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 quit smoking cessation >3yr Cardiology referral F/U 07/[address] chest Orders: Orders RT home sleep study Today G47.33 - Obstructive sleep apnea (adult) (pediatric) CT chest wo IV con 07/30/25 C34.91 - Malignant neoplasm of unspecified part of right bronchus or lung, R91.8 - Other nonspecific abnormal finding of lung field Referrals Cardiology Referral I25.10 - Atherosclerotic heart disease of [place] coronary artery without angina pectoris, R06.00 - Dyspnea, unspecified Coding Level of Care Code Est Pt Level 4 (12002) Complex EM visit Add On G2211 Diagnoses Pulmonary nodules R91.8 Simple chronic bronchitis J41.0 COPD type: chronic bronchitis Chronic bronchitis type: simple Malignant neoplasm of right lung, unspecified part of lung C34.91 Laterality: right Lung location: unspecified part of lung Coronary artery calcification I25.10 Dyspnea on exertion R06.09 Dyspnea type: dyspnea on exertion Time Spent (min) 17
--- OUTSIDE RECORDS SUMMARY | 2024-12-11 11:00 | XMS_ITS | Encounter Summary ---
Author Organization [facility] Address [address] [place] [address] Care Team Providers Care Etl Data Architect Name Role Phone Tomás Bassett MD Primary Care Provider [phone] Encounter Details Date Type Department Care Team (Late st Contact Info) Description 08/31/2019 Scanned Document [facility] NEUROSURGERY SCAN Neurosurgery, Scan Social History Tobacco Use Types Packs/Day Years Used Date Smoking Tobacco: Never Assessed Sex and Gender Information Value Date Recorded Sex Assigned at Not on file Gender Identity Not on file Sexual Orientation Not on file documented as of this encounter Plan of Treatment Not on file documented as of this encounter Visit Diagnoses Not on filedocumented in this encounter Care Teams Etl Data Architect Relationship Specialty Start Date End Date Tomás Bassett MD [address] [place] [id number] PCP - General Internal Medicine 01/31/20 documented as of this encounter
--- OUTSIDE RECORDS SUMMARY | 2024-12-11 11:00 | XMS_ITS | Clinical Summary ---
Author Organization [facility] Address [address] [place] [address] Care Team Providers Care Chain Dyer Name Role Phone Tomás Bassett MD Primary Care Provider [phone] Allergies Active Allergy Reactions Criticality Noted Date Comments Cephalexin Swelling Medium 12/10/2017 Swelling of tongue Codeine Nausea Only,Nausea A nd Vomiting Low 05/11/2014 Lisinopril Swelling Medium 12/10/2017 Swelling of tongue Metformin Swelling Medium 07/10/2016 Swelling of tongue Medications Medication Sig Dispensed Refills Start Date End Date Status fluticasone-salmeter ol (ADVAIR) 250-50 MCG/DOSE DISKUS 1 inhalation by Inhaled route every 12 (twelve) hours. 0 Active aspirin EC 81 MG tablet Take 81 mg by mouth daily. 0 Active docusate sodium (COLACE) 100 MG capsule Take 100 mg by mouth 2 (two) times a day. 0 Active risperiDONE (RISPERDAL) 2 MG tablet Take 2 mg by mouth every night at bedtime. 0 Active buPROPion (WELLBUTRIN XL) 150 MG 24 hr tablet Take 150 mg by mouth every evening. 0 11/25/2014 Active buPROPion (WELLBUTRIN XL) 300 MG 24 hr tablet Take 300 mg by mouth daily. 0 12/13/2014 Active FLUoxetine HCl 60 MG TABS Take 60 mg by mouth daily. 0 11/25/2014 Active simvastatin (ZOCOR) 40 MG tablet 40 mg every night at bedtime. 1 11/26/2014 Active Insulin 70/30 NPH/Regular (NOVOLIN 70/30) (70-30) 100 UNIT/ML injectionIndications :Type II or unspecified type diabetes mellitus without mention of complication, not stated as uncontrolled Take 85 u before breakfast and 45 u before evening meal 10 mL 6 02/12/2015 Active Additional Information Patient taking differently: Take 100 u before breakfast and 100 u before evening meal, Reason: Other, Reported on 03/05/2021 ibuprofen (ADVIL,MOTRIN) 800 MG tablet Take 1 tablet (800 mg total) by mouth every 8 (eight) hours as needed for pain. 30 tablet 0 12/11/2017 Active busPIRone (BUSPAR) 30 MG tablet Take 30 mg by mouth 2 (two) times a day. 0 Active amLODIPine (NORVASC) tablet 5 mg Take 10 mg by mouth daily. 0 Active Multiple Vitamin (MULTIVITAMIN ADULT PO) Take 1 tablet by mouth daily. 0 Active dulaglutide (Trulicity) 1.5 MG/0.5ML subcutaneous pen-injector Inject 1.5 mg under the skin once a week. 0 Active polyvinyl alcohol-povidone (GoodSense Artificial Tears) 5-6 MG/ML SOLN ophthalmic solution Place 2 drops into the right eye as needed. 30 mL 1 08/04/2021 Active gabapentin (NEURONTIN) 600 MG tablet Take 600 mg by mouth 3 (three) times a day. 0 Active albuterol 108 (90 Base) MCG/ACT inhaler Inhale 2 puffs into the lungs every 6 (six) hours as needed for wheezing or shortness of breath. 18 g 0 12/20/2021 Active hydroCHLOROthiazide (HYDRODIURIL) tablet 25 mg Take 25 mg by mouth daily. Taking 1/2 tablet daily 0 Active doxycycline (ADOXA) 50 MG tablet Take 50 mg by mouth 2 (two) times a day. 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 Malignant neoplasm of upper lobe of right lung 0 05/22/2021 Cancer Staging:Pathologic stage from 05/14/2021:Stage IB(pT2a, pN0, cM0) - Signed by Rose Dickerson MD on 05/26/2021 Clinical: Unsigned Squamous cell carcinoma of right lung 05/22/2021 Lumbar facet joint pain 04/15/2018 Spinal stenosis of lumbar re gion with neurogenic claudication 12/07/2017 Peripheral polyneuropathy 12/07/2017 Weakness of both lower extremities 12/07/2017 Lumbar spondylosis 12/07/2017 Bilateral hip pain 10/26/2017 Acute bilateral low back pain with sciatica 10/01 Diabetes mellitus 01/07/2015 Family History Medical History Relation Name Comments Cancer Father lung COPD Mother Cancer Mother bladder Relation Name Status Comments Father Mother Social History Tobacco Use Types Packs/Day Years Used Date Smoking Tobacco: Former Cigarettes 0.5 0 10/26/1977 - 2021 Smokeless Tobacco: Never Tobacco Cessation:Ready to Q uit: No; Counseling Given: Yes Alcohol Use Standard Drinks/Week Comments No 0 (1 standard drink = 0.6 oz pur e alcohol) Sex and Gender Information Value Date Recorded Sex Assigned at Female 06/26/2020 7:52 AM EDT Gender Identity Female 12/19/2021 1:06 PM EDT Sexual Orientation Straight 12/19/2021 1: 06 PM EDT Job Start Date Occupation Industry Not on file Not on file Not on file Last Filed Vital Signs Vital Sign Reading Time Taken Comments Blood Pressure 131/66 01/06/2022 10:01 AM EDT Pulse 97 01/06/2022 10:01 AM EDT Temperature 37.2 ??C (99 ??F) 01/06/2022 10: 01 AM EDT Respiratory Rate 20 12/20/2021 7:08 AM EDT Oxygen Saturation 96% 01/06/2022 10: 01 AM EDT Inhaled Oxygen Concentration - - Weight 105.9 kg (233 lb 6.4 oz) 022 10:01 AM EDT Height 167.6 cm (5' 6 ) 01/06/2022 10:0 1 AM EDT Body Mass Index 37.67 01/06/2022 10:01 AM EDT Plan of Treatment Health Maintenance Due Date Last Done Comments Hepatitis C Screening 1961 COVID-19 Vaccine (#1) 1966 Pneumococcal Vaccine (1 of 2 - PCV) 1967 Depression Screening 1973 BMI Counseling 1979 Preventative Health Evaluation 1979 Tobacco Cessation Counseling 1979 DTap / Tdap / Td (1 - Tdap) 1980 Cervical Cancer Screening (Pap Smear) 1982 Colon Cancer Screening (Colonoscopy) 2006 Breast Cancer Screening (Mammogram) 2011 RSV Adult > 60+ Yrs or (1 - Risk 60-74 years 1-dose series) 2021 Influenza Vaccine (#1) 2024 0, 08/01/2015 Shingrix-Zoster Vaccine Completed 09/06/19 21, 06/18/2020 Hepatitis B Vaccines Aged Out No long er eligible based on patient's age to complete this topic RSV Ped < 20 months Aged Out No longe r eligible based on patient's age to complete this topic Medical Devices Implanted Type Area Joint Creaser Device Identifier Shelf Expiration Date Model / Serial / Lot [id number] Implanted:Qty: 1 on 03/12/2021 by Herb Campos MD at [facility] Location Lens Right: Eye [employer] 01/03/2025 [id number] / [id number] / Lens Tecnis Simplicity Tecnis Protec Tri-Fix 13mm +24 Jn-Visn [id number] - [id number] Implanted:Qty: 1 on 03/26/2021 by Herb Campos MD at [facility] Location Lens [employer] 07/15/2023 [id number] / [id number] / Advance Directives For more information, please contact: [phone] Documents on File Type Date Recorded Patient Elementary Ell Teacher Expl anation Power of Vice President Of News 01/07/2015 1:20 PM Latest Code Status on File Code Status Date Activated Date Inactivated Comments Partial Code 12/19/2021 4:26 PM 12/20/2021 7:15 PM This code status was ascertained in the following way: discussion with patient . Question Answer Comments Limitation: No ET Tube/Mechanica l Ventilation Code Status History Code Status Date Activated Date Inactivated Comments Full Code 12/19/2021 1:01 PM 12/19/2021 4:26 PM This code status was ascertained in the following way: discussion with patient . Care Teams Chain Dyer Relationship Specialty Start Date End Date Tomás Bassett MD [address] [facility], [place] [address] PCP - General Internal Medicine 05/11/14
--- OUTSIDE RECORDS SUMMARY | 2024-12-11 11:00 | XMS_ITS | Encounter Summary ---
Author Organization [facility] Address [address] [place] [address] Care Team Providers Care Pressure Tank Operator Name Role Phone Tmoás Bassett MD Primary Care Provider [phone] Encounter Details Date Type Department Care Team (Late st Contact Info) Description 08/31/2019 Scanned Document [facility] NEUROSURGERY SCAN Neurosurgery, Scan Social History Tobacco [...] on filedocumented in this encounter Care Teams Pressure Tank Operator Relationship Specialty Start Date End Date Tomás Bassett MD [address] [place] [id number] PCP - General Internal Medicine 01/31/20 documented as of this encounter
--- OUTSIDE RECORDS SUMMARY | 2024-12-11 11:00 | XMS_ITS | Encounter Summary ---
Author Organization [facility] Address [address] [place] [address] Care Team Providers Care Golf Starter And Ranger Name Role Phone Tomás Bassett MD Primary Care Provider [phone] Encounter Details Date Type Department Care Team (Late st Contact Info) Description 09/12/2019 Scanned Document [facility] NEUROSURGERY SCAN Neurosurgery, Scan Social History Tobacco [...] on filedocumented in this encounter Care Teams Golf Starter And Ranger Relationship Specialty Start Date End Date Tomás Bassett MD [address] [place] [id number] PCP - General Internal Medicine 01/31/20 documented as of this encounter
--- OUTSIDE RECORDS SUMMARY | 2024-12-11 11:00 | XMS_ITS | Data Portability ---
Author Organization [place] [facility], Main Office Address [address] [facility] [address] [address] [place] [address] Care Team Providers Care Cover Stripper Name Role Phone ELÍAS CLAYTON Primary Care Provider ELÍAS CLAYTON Primary Care Provider REESE HAMMOND Referring Provider [phone] Assessment No assessment recorded. Plan of Treatment Reminders Order Date Submit Date Provider Last Modified By Organization Details Last Modified Time Details Appointments None recorded. Lab None recorded. Referral physiatry referral - 2 year history of lower back pain and diffuse leg pain numbness and tingling pins and needles. MRI scan is within normal limits. No disc herniation malalignmen t collapsed disc spaces or impingement of canal or foramen. No neurosurgic al interventio n is warranted. 2017 018 [email or web address] 4 Dash Serrano MD, [address] [place], [address], 8 15:59:16 Procedures None recorded. Surgeries None recorded. Imaging None recorded. Medication Orders None recorded. Patient TargetsNo targets recorded. Patient Instructions Encounter Date Encounter Id Patient Instructions Last Modified By Organization Details Last Modified Time 11/22/2017 [id number] Quitting Tobacco : Care Instructions [email or web address] Not available 11/22/2017 10:49:50 Patient presents with a two-year history of diffuse back pain and buttock pain and bilateral leg pain involving the entire leg to the foot and ankle. Worse with standing and bending and lifting carrying heavy objects coughing and sneezing improved with sitting and lying down. MRI scan of the lumbar spine x-ray shows well-preserved disc space height good alignment with a slight anterior listhesis of L3 and L4. Facet so age-appropriate degenerative changes. Canal and foramen are patent. Her clinical examination is more consistent with musculoskeletal issues. I do not see signs of radiculopathy on my examination. She did have significant guarding during the testing but appears to have full strength. I do not have a structural abnormality that would explain her diffuse symptoms. I do not feel that any type of neurosurgical intervention is warranted. I would not recommend any type of spinal injections at this time. I did make a referral to physiatry for their evaluation. She does use tobacco products and we had a discussion on it would impact both her pain lower back issues in general health. I discussed with her reasons and rationale for her no longer using Nicotine-containing products. No follow-up has been arranged with this office at this time. [email or web address] Not available 11/24/2017 14:38:56 Reason for Referral Physiatry Referral for Low b ack pain Evaluation and treatment 2 year history of lower back pain and diffuse leg pain numbness and tingling pins and needles. MRI scan is within normal limits. No disc herniation malalignment collapsed disc spaces or impingement of canal or foramen. No neurosurgical intervention is warranted. Referring Physician: Herb King, Neurosurgery, Encounter Date: 11/22/2017 Procedures Surgical History Date Name Laterality Status Provider Name and Address Organization Details Recorded Time delivery completed Shannon Kimble [facility] 11/22/2017 10:28:21 Other completed Shannon Kimble [facility] 11/22/2017 10:28:37 Imaging Results None recorded. Procedure Notes None recorded. Medical Equipment None Reported. Allergies Allergen ID Allergen Name Allergen Category Reaction Reaction Severity Criticality Documentation Date Start Date Code Code System Note Provider Name and Address Organization Details Recorded Time 3352 codeine medicatio n Not available Not available Not available 11/22/2017 2670 RxNorm Shannon hsu, [facility] 8 10:11:11 3353 metformin medicatio n Not available Not available Not available 11/22/2017 6809 RxNorm Shannon hsu, [place] [facility] 8 10:11:36 3354 lisinopri l medicatio n Not available Not available Not available 11/22/2017 57177 RxNorm Shannon Kimble [place], [place] [facility] 8 10:11:42 Medications Name Sig Start Date Stop Date Status Note LastModified by Organization Details LastModified Time Risperdal 2 mg tablet Take 1 tablet twice a day by oral route. active Not Available Not Available No t Available insulin syringe U-100 with needle 1 mL 29 gauge x 03/14 completed Not Available Not Available Not Available sulfamethoxaz ole 800 mg-trimethopr im 160 mg tablet 11/22 completed Not Available Not Available Not Available simvastatin 40 mg tablet 11/22 completed Not Available Not Available Not Available Advair Diskus 250 mcg-50 mcg/dose powder for inhalation 11/22 completed Not Available Not Available Not Available piroxicam 20 mg capsule active Not Available Not Available N ot Available fluoxetine 20 mg capsule 11/22 completed Not Available Not Available Not Available buspirone 15 mg tablet 11/22 completed Not Available Not Available Not Available bupropion HCl XL 300 mg 24 hr tablet, extended release 11/22 completed Not Available Not Available Not Available bupropion HCl XL 150 mg 24 hr tablet, extended release 11/22 completed Not Available Not Available Not Available aspirin 81mg active Not Available Not Avail able Not Available fluoxetine active Not Available Not Av ailable Not Available Colace active Not Available Not Availa ble Not Available simvastatin 40mg active Not Available Not A vailable Not Available Vitamin D active Not Available Not Ashanti ilable Not Available multivitamin active Not Available Not Available Not Available bupropion HCl (bulk) active Not Available Not Available Not Available GaviLyte-G 236 gram-22.74 gram-6.74 gram-5.86 gram oral solution 11/22 completed Not Available Not Available Not Available Vitals Date Recorded Body weight Body mass index (BMI) Body height Body temperature Provider Name and Address Organization Details Last Updated DateTime 11/22/2017 133832.86 g 38.5 kg/m2 167.64 cm 98.2 [degF] Shannon Kimble [place] [facility] 11/22/2017 10:11:03 Social History Question Answer Notes LastModified by Organizat ion Details LastModified Time Tobacco Smoking Status Current Every Day Smoker 1.5 packs daily Shannon hsu, [place] [facility] 11/22/2017 10:12:31 What Is Your Level Of Alcohol Consumption? None [email or web address] Information not available 11/22/2017 What Is Your Level Of Caffeine Consumption? 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 11/22/2017 Information not available 03/22/2019 Sex: Unknown Functional Status None recorded. Mental Status None recorded. Family History Relationship Description Onset Age of this Age Resolved Age Notes LastModified by Organization Details LastModified Time Father Family history of malignant neoplasm 62 lung [email or web address] Not available 11/22 10:30:20 Father Arthritis [email or web address] Not availa ble 11/22/2017 10:31:04 Mother Family history of malignant neoplasm bladde r [email or web address] Not available 11/22/2017 10:30:43 Mother Arthritis [email or web address] Not availa ble 11/22/2017 10:31:04 Medical History Condition Response Coronary Artery Disease N Other N Anxiety/Depression N Parkinson's Disease N MRSA N Head Trauma/Injury N Brain Tumors N Anemia N PTSD Y Multiple Sclerosis N Meningitis N Spine/Back Problems Y Heart Attack ([place]) N Neurological Problems N Anxiety Disorder Y Diabetes Y Bleeding Disorder N Arthritis Y Tuberculosis N Cerebral Palsy N AIDS/HIV N Cancer N Back Problems Y Stroke N Asthma N Neck Injury N Epilepsy/Seizures N Thyroid Disorder N Hepatitis N Aneurysm N Liver Disease N Neuropathy Y Heart Disease N Headaches N Hypertension N Kidney Disease N Gynecological HistoryNo gynecological history recorded. Obstetrics History GPAL:G 0 P 0 0 0 0 Past Encounters Encounter ID Performer Location Encounter Start Date Encounter Closed Date Diagnosis/Indication Diagnosis SNOMED-CT Code Diagnosis ICD10 Code Diagnosis Note [id number] Herb King MD Main Office [address] [facility] Estef[facility] [address] [place] [address] 11/22/2017 09:53:24 11/22/2017 10:45:02 Low back pain 224022687 M54.5 Obesity 470281241 E66.9 Tobacco user 611757499 Z 72.0 Tobacco us e cessation education 990079655 Z71.6 Health Concerns Section Related Observation LastModified by Organization Detai ls LastModified Time None Recorded Concern Status LastModified by Organization Details LastModified Time None Recorded Advance Directives Directive None Recorded Payers Encounter Date Sequence Insurance Name Policy Number Policy Ryan Covered Member ID Ryan Member ID Guarantor Name 11/22/2017 2 [facility] (MEDICARE REPLACEMENT/ ADVANTAGE - HMO) [id number] Varsha Draperhubert [id number] Varsha Burgess 11/22/2017 1 [facility] [id number] Varsha Jaky Montgomerytehubert [id number] Varsha Bonnyhubert Notes Date Note Type Note Provider Name and Address Organization Details Recorded Time 11/22/2017 text/html L-spineReported bypatient.Locatio n:bilateral; ower back, hips, anterior, posterior legs down to ankles and feet. (legs constant, feet intermittent) Combination of aching, stabbing, burning, numbness and weakness Quality:constant; worsening Severity:severe Duration:3+ months Timing:morning; daytime; nighttime Context:cannot identify Alleviating Factors:sitting; rest Aggravating Factors:standing; walking; coughing, sneezing Associated Symptoms:no fever;weakness;nu mbness;tingling; cramping Previous Surgery:none Prior Imaging:MRI (lumbar spine 11/01/2017) Previous Injections:none Previous PT:none Work Related:no Working:no (patient was taken out of work by Dr. Hammond) Herb King MD [address] [place] [address], [place], [address], [place] [facility] 11/24/2017 14:39:27 OBGyn Episode No OBEpisode recorded.
--- OUTSIDE RECORDS SUMMARY | 2024-12-11 11:00 | XMS_ITS ---
Author Name [facility] Organization Unknown History of Medication Use Medication Directions Dispensed Refills Start Date End Date Stat us buPROPion (WELLBUTRIN XL) 300 MG 24 hr tablet 11/17/2019 active amLODIPine (NORVASC) 5 MG tablet 01/23/2020 active simvastatin (ZOCOR) 40 MG tablet 12/25/2019 active No known medications No known medications active aspirin 81 MG chewable tablet Chew 81 mg daily. ac tive Problems Problem Status Onset Date Problem Type Date of Resoluti on Source Abrasion of right wrist, initial encounter active [facility] wrist pain active [facility]DiagnosisAct [facility] Encounters Encounter Type Encounter Reason Primary Diagnosis Location Date Ambulatory [place] [facility] 05/20/2023 Ambulatory Pain in right wrist Pain in right wrist [facility] 05/20/2023 Care Team Organization Name Specialty Phone Email Start Date End Da te [place] [facility] 05/20/2023 05/20/2023 [place] [facility] ELÍAS CLAYTON Primary Care 05/20/2023 11/11/2024 [facility] 01/30/2023 [place] [facility], [facility] Geri Alva MD Primary Care 05/22/2021 04/17/2024 [facility]
--- OUTSIDE RECORDS SUMMARY | 2024-12-11 11:00 | XMS_ITS | Clinical Summary ---
Author Organization [facility] Address [address] [place] [address] Care Team Providers Care Media Sales Executive Name Role Phone Lisa De La Torre Primary Care Provider Surgical History Surgery Date Site/Laterality Comments SECTION PROCEDURE: SECTION OTHER SURGICAL HISTORY PROCEDURE:Removal of non-cancerous cyst on tongue LUMBAR EPIDURAL INJECTION 04/28/2018 Bilateral PROCEDURE:LUMBAR EPIDURAL INJECTION;COMMENT:Procedure: BILATERAL L4-5 L5-S1 FACET JOINT INJECTION ANESTHETIC AGENT LUMBAR; Surgeon: Mayela Roger MD; Location: ENDOSCOPY; Service: Rehab Medicine; Laterality: Bilateral; CATARACT EXTRACTION W/ INTRAOCULAR LENS IMPLANT 03/12/2021 Right PROCEDURE:CATARACT EXTRACTION W/ INTRAOCULAR LENS IMPLANT;COMMENT:Procedure: RIGHT EXTRACTION CATARACT WITH IOL IMPLANT; Surgeon: Herb Campos MD; Location: [facility]; Service: Ophthalmology; Laterality: Right; CATARACT EXTRACTION W/ INTRAOCULAR LENS IMPLANT 03/26/2021 Left PROCEDURE:CATARACT EXTRACTION W/ INTRAOCULAR LENS IMPLANT;COMMENT:Procedure: EXTRACTION CATARACT WITH IOL IMPLANT; Surgeon: Herb Campos MD; Location: [facility]; Service: Ophthalmology; Laterality: Left; Medical History Medical History Date Comments Diabetes mellitus ([facility] V 24, [facility] V28) DX:Diabetes mellitus ([facility]) Hypertension DX:Hypertension Elevated cholesterol DX:Elevated cholesterol COPD (chronic obstructive pu lmonary disease) ([facility] V24, [facility] V28) DX:COPD (chronic o bstructive pulmonary disease) ([facility]) Anxiety DX:Anxiety Depression DX:Depression Urinary incontinence DX:Urinary incontinence;COMMENT:stress incontinence Diabetes mellitus, type II ( [facility] V24, [facility] V28) DX:Diabetes mellitus, type I I (HCC) Brain tumor (benign) (CMS/HC C V24, CMS/HCC V28) DX:Brain tumor (benign) (HCC ) Cataract DX:Cataract Adrenal adenoma DX:Adrenal adeno ma Pulmonary nodules DX:Pulmonary n odules Family History Medical History Relation Name Comments Cancer Father lung COPD Mother Cancer Mother bladder Relation Name Status Comments Father Mother Social History Tobacco Use Types Packs/Day Years Used Date Smoking Tobacco: Former Cigarettes 0.5 43.5 0 10/26/1977 - 2021 Smokeless Tobacco: Never Alcohol Use Standard Drinks/Week Comments No 0 (1 standard drink = 0.6 oz pur e alcohol) Comments Unknown Sex and Gender Information Value Date Recorded Sex Assigned at Not on file Legal Sex Female 2:27 PM EST Gender Identity Not on file Sexual Orientation Not on file Obstetrics History Last Filed Vital Signs Vital Sign Reading Time Taken Comments Blood Pressure 131/66 01/06/2022 10:01 AM EDT Sitting Left arm Pulse 97 01/06/2022 10:01 AM EDT Temperature - - Respiratory Rate - - Oxygen Saturation - - Inhaled Oxygen Concentration - - Weight 106 kg (233 lb 6.4 oz) 01/06/2022 10:01 AM EDT Height 167.6 cm (5' 6 ) 01/06/2022 10:0 1 AM EDT Body Mass Index 37.67 01/06/2022 10:01 AM EDT Plan of Treatment Health Maintenance Due Date Last Done Comments Breast Cancer Screening 1961 COVID-19 Vaccine (#1) 1966 Diabetes: Annual Foot Exam 1971 Diabetes: Annual Retina Eye Exam 1971 DTaP,Tdap,and Td Vaccines (1 - Tdap) 1980 Pneumococcal Vaccine: 50+ Years (1 of 2 - PCV) 1980 Pneumococcal Vaccine: Pediatrics (0 to 5 Years) and At-Risk Patients (6 to 64 Years) (1 of 2 - PCV) 1980 Zoster Vaccines (1 of 2) 1980 Cervical Cancer Screening: Pap Smear 1982 RSV Immunization Adult Patients (1 - Risk 60-74 years 1-dose series) 2021 Cholesterol Screening (Lipid Panel) 07/29/2022 Colorectal Cancer Screening: Colonoscopy 07/29/2022 Depression Screening 07/29/2022 HIV Screening 07/29/2022 Hepatitis C Screening 07/29/2022 Lung Cancer Screening (Low Dose CT) 07/29/2022 Social Influencers of Health Screening 07/29/2022 Diabetes: Blood Sugar Control Test (HGBA1C) 08/07/2022 12/19/2021 Diabetes: Annual GFR (Glomerular Filtration Rate) 12/20/2022 12/20/2021, 12/19/2021, 06/21/2020, Additional history exists Hypertension/CHF/CAD Annual BMP Blood Test 08/15/2024 12/20/2021, 12/19/2021, 06/21/2020, Additional history exists Influenza Vaccine (Season Ended) 2025 08/01/2015 Diabetes: Annual Urine Albumin-Creatinine Ratio (uACR) 05/29/2025 05/29/2024, 03/25/2023 HIB Vaccines Aged Out No longer eligi ble based on patient's age to complete this topic HPV Vaccines Aged Out No longer eligi ble based on patient's age to complete this topic Hepatitis A Vaccines Aged Out No long er eligible based on patient's age to complete this topic Hepatitis B Vaccines Aged Out No long er eligible based on patient's age to complete this topic IPV Vaccines Aged Out No longer eligi ble based on patient's age to complete this topic MMR Vaccines Aged Out No longer eligi ble based on patient's age to complete this topic Meningococcal ACWY Vaccine Aged Out N o longer eligible based on patient's age to complete this topic Meningococcal B Vaccine Aged Out No l onger eligible based on patient's age to complete this topic RSV Immunization Patients Under 20 months Aged Out No longer eligible based on patient's age to complete this topic Varicella Vaccines Aged Out No longer eligible based on patient's age to complete this topic Medical Devices Implanted Type Area Gas Turbine Powerplant Mechanic Device Identifier Shelf Expiration Date Model / Serial / Lot [id number] Implanted:Qty: 1 on 03/12/2021 by Herb Campos MD Implants Right: Eye [employer] VISION 01/03/2025 [id number] / [id number] / Lens Tecnis Simplicity Tecnis Protec Tri-Fix 13mm +24 [facility]-Visn [id number] - [id number] Implanted:Qty: 1 on 03/26/2021 by Herb Campos MD Implants [employer] VISION 07/15/2023 [id number] / [id number] / Advance Directives Documents on File Type Date Recorded Patient Sterilizer Machine Operator Expl anation Health Care Decision (hx) 05/06/2021 AD ROSENBERG DIRECTIVE Health Care Decision (hx) 05/06/2021 AD ROSENBERG DIRECTIVE Health Care Decision (hx) 05/06/2021 AD ROSENBERG DIRECTIVE Health Care Decision (hx) 05/06/2021 AD ROSENBERG DIRECTIVE Care Teams Media Sales Executive Relationship Specialty Start Date End Date Lisa De La Torre PA [facility] [address] [place] [id number] PCP - General 03/30/23
--- OUTSIDE RECORDS SUMMARY | 2024-12-11 11:00 | XMS_ITS | Encounter Summary ---
Author Organization [facility] Address [address] [place] [address] Care Team Providers Care Gaming Host Name Role Phone Tomás Bassett MD Primary Care Provider [phone] Encounter Details Date Type Department Care Team (Late st Contact Info) Description 05/20/2023 6:31 PM EDT Hospital Encounter [facility] [address] [place] [id number] Yann Carpenter MD [address] [place] [address] Social History Tobacco Use Types Packs/Day Years [...] on file documented as of this encounter Procedures Procedure [...] acute fracture or dislocation identified. Mynor MOLINA IMMichael DIAGNOSTIC IMAGI NG ORDERABLES documented in this encounter Visit Diagnoses Not on filedocumented in this encounter Care Teams Gaming Host Relationship Specialty Start Date End Date Tomás Bassett MD [address] [place] [address] PCP - General Internal Medicine 01/31/20 documented as of this encounter
--- OUTSIDE RECORDS SUMMARY | 2024-12-11 11:00 | XMS_ITS | Clinical Summary ---
Author Organization [facility] Address [address] [place] [address] Care Team Providers Care Hvac Service Tech Name Role Phone Tomás Bassett MD Primary Care Provider [phone] Allergies Active Allergy Reactions Criticality Noted Date Comments Cephalexin Swelling Medium 01/31/2020 Codeine GI Intolerance/Nausea/Vomiting Low 01/30 Lisinopril Swelling Medium 01/31/2020 Metformin Swelling Medium 01/31/2020 Medications Medication Sig Dispensed Refills Start Date End Date Status amLODIPine (NORVASC) 5 MG tablet 01/23/2020 Active buPROPion (WELLBUTRIN XL) 150 MG 24 hr tablet 11/17/2019 Active buPROPion (WELLBUTRIN XL) 300 MG 24 hr tablet 11/17/2019 Active clindamycin (CLEOCIN-T) 1 % lotion HENOK EXT AA QD 12/08/2019 Active FLUoxetine (PROzac) 20 MG capsule 11/17/2019 Active fluticasone-salmetero l (ADVAIR) 500-50 mcg/inh diskus inhaler 11/25/2019 Active gabapentin (NEURONTIN) 600 MG tablet 12/06/2019 Active HUMALOG MIX 75/25 (75-25) 100 UNIT/ML injection 12/12/2019 Active pfrozoen-keacxpufb-nn drocortisone (CORTISPORIN) 3.5-46021-8 otic suspension INSTILL 4 GTT IN EACH AFFECTED EAR TID X 7 DAYS 12/06/2019 Active risperiDONE (RisperDAL) 2 MG tablet 11/17/2019 Active simvastatin (ZOCOR) 40 MG tablet 12/25/2019 Active valACYclovir (VALTREX) 1000 MG tablet TK 1 T PO TID FOR 7 DAYS 12/08/2019 Active aspirin 81 MG chewable tablet Chew 81 mg daily. Ac tive ibuprofen (MOTRIN) 800 mg tablet Take 800 mg by mouth 4 times daily (every 6 hours) as needed for mild pain. Active acetaminophen (TYLENOL) 500 MG tablet Take 500 mg by mouth 4 times daily (every 6 hours) as needed for mild pain. Active ciprofloxacin (CIPRO) 500 MG tabletIndications:Uri nary tract infection without hematuria, site unspecified Take 1 tablet (500 mg total) by mouth 2 (two) times a day. 10 tablet 01/31/2020 Active Social History Tobacco Use Types Packs/Day Years Used Date Smoking Tobacco: Every Day Cigarettes 0.3 44 Smokeless Tobacco: Never Alcohol Use Standard Drinks/Week Comments Not Currently 0 (1 standard drink = 0.6 oz pur e alcohol) Sex and Gender Information Value Date Recorded Sex Assigned at Not on file Gender Identity Not on file Sexual Orientation Not on file Last Filed Vital Signs Vital Sign Reading Time Taken Comments Blood Pressure 150/76 05/20/2023 6:25 PM EDT Pulse 99 05/20/2023 6:25 PM EDT Temperature 37.2 ??C (99 ??F) 05/20/2023 6:25 PM EDT Respiratory Rate - - Oxygen Saturation 96% 05/20/2023 6:25 PM EDT Inhaled Oxygen Concentration - - Weight 104 kg (230 lb) 01/31/2020 5:57 PM EDT Height 167.6 cm (5' 6 ) 01/31/2020 5:57 PM EDT Body Mass Index 37.12 01/31/2020 5:57 PM EDT Plan of Treatment Health Maintenance Due Date Last Done Comments Hepatitis C Virus Screening 1961 HIV Screening 1974 DTaP/Tdap/Td Vaccines (1 - Tdap) 1980 Pap Smear (Ages 21-65) 1982 Mammogram 2001 Colonoscopy 2006 Pneumococcal Vaccines 50+ (1 of 1 - PCV) 2011 Zoster (Shingles) Vaccine (1 of 2) 2011 RSV Vaccine 60 years and older and Patients (1 - Risk 60-74 years 1-dose series) 2021 Influenza Vaccine 03/30/2024 06/04/2022, , 06/17/2018, Additional history exists COVID-19 Vaccine ( season) 2024 06/04/2022, 12/03/2020, 11/05/2020 Hemoglobin A1C Discontinued 03/25/2023, 11/29, 12/19/2021 Hepatitis B Vaccines Aged Out No long er eligible based on patient's age to complete this topic Care Teams Hvac Service Tech Relationship Specialty Start Date End Date Tomás Bassett MD [address] [place] [address] PCP - General Internal Medicine 01/31/20
== END 2024-12-11 10:33 | disposition home or self-care (01) ==
LOC: HO.HPS 09:51
PROVIDERS: PCP Internal Medicine; Visit Provider Hospitalist
DX: R91.8 Other nonspecific abnormal finding of lung field (principal); J41.0 Simple chronic bronchitis; C34.91 Malignant neoplasm of unspecified part of right bronchus or lung; I25.10 Atherosclerotic heart disease of native coronary artery without angina pectoris; R06.09 Other forms of dyspnea
CPT/HCPCS: 99214

== ENCOUNTER → 2024-12-11 09:50 | Outpatient (BNVA) | payer OTHER, SELFPAY | PROVIDERS: PCP Internal Medicine; Visit Provider Hospitalist | DX: C34.91 Malignant neoplasm of unspecified part of right bronchus or lung (principal); R91.8 Other nonspecific abnormal finding of lung field ==

== ENCOUNTER 2025-08-15 09:58 | Outpatient (AMB) | payer MEDICARE, SELFPAY ==
--- OUTSIDE RECORDS SUMMARY | 2023-05-20 17:31 | XMS_ITS | Encounter Summary ---
Author Organization [facility] Address [address] [place] [address] Care Team Providers Care Records Management Director Name Role Phone Tomás Bassett MD Primary Care Provider [phone] Encounter Details Date Type Department Care Team (Late st Contact Info) Description 05/20/2023 6:31 PM EDT Hospital Encounter [facility] [address] [place] [phone] Yann Carpenter MD [address] [place] [address] Social History Tobacco Use Types Packs/Day Years Used Date Smoking Tobacco: Every Day Cigarettes 0.3 44 Smokeless Tobacco: Never Alcohol Use Standard Drinks/Week Comments Not Currently 0 (1 standard drink = 0.6 oz pur e alcohol) Comments Unknown Sex and Gender Information Value Date Recorded Sex Assigned at Female 12/21/2024 10:39 AM EDT Legal Sex Female 10:30 AM EDT Gender Identity Female 12/21/2024 10:39 AM EDT Sexual Orientation Heterosexual (straight) 12/21 10:39 AM EDT documented as of this encounter Plan of Treatment Upcoming Encounters Date Type Department Care Team (Late st Contact Info) Description 09/13/2025 10:00 AM EST Appointment formerly [facility] [address] [phone] Wade Jackson MD [address] [address] 09/24/2025 11:20 AM EST Office Visit formerly [facility] [place] 7 [facility] [address] [place] [phone] Wade Jackson MD 7 [facility] [address] [place] [address] 10/09/2025 4:00 PM EST Consult [facility] [address] [facility] [address] [place] [phone] Keven Casanova MD 113 [facility] [address] [place] [address] documented as of this encounter Procedures Procedure Name Priority Date/Time Associated Diagnosis Comments XR WRIST 3+ VIEWS-RIGHT STAT 05/20/2023 6:36 PM EDT Right wrist pain documented in this encounter Results * XR Wrist 3+ views-Right (05/20/2023 6:36 PM EDT) Anatomical Region Laterality Modality Wrist Right Computed Radiogr aphy 05/20/2023 6:49 PM EDT Impressions 05/20/2023 6:50 PM EDT No acute fracture or dislocation identified. Narrative 05/20/2023 6:50 PM EDT XR WRIST 3+ VIEWS-RIGHT: 05/20/2023 6:31 PM CLINICAL HISTORY: dorsal wrist tenderness, crush injury. Right wrist pain. AP, lateral, and oblique views of the right wrist. No acute fracture or dislocation of the right wrist. Mildly degenerative changes. Suggestion of mild soft tissue swelling in the dorsal aspect. No radiopaque foreign body. Procedure Note Foreign Post MD - 05/20/2023 XR WRIST 3+ VIEWS-RIGHT: 05/20/2023 6:31 PM CLINICAL HISTORY: dorsal wrist tenderness, crush injury. Right wrist pain. AP, lateral, and oblique views of the right wrist. No acute fracture or dislocation of the right wrist. Mildly degenerativechanges. Suggestion of mild soft tissue swelling in the dorsal aspect. Noradiopaque foreign body. IMPRESSION: No acute fracture or dislocation identified. [facility] ORDERAB LES Final Result documented in this encounter Visit Diagnoses Not on filedocumented in this encounter Care Teams Records Management Director Relationship Specialty Start Date End Date Tomás Bassett MD [address] [place] [address] PCP - General Internal Medicine 01/31/20 documented as of this encounter
--- OUTSIDE RECORDS SUMMARY | 2025-03-09 09:45 | XMS_ITS ---
Author Organization [facility] Address [address] [place] [address] Care Team Providers Care Automatic Furnace Operator Name Role Phone ELÍAS CLAYTON [phone] REASON FOR VISIT 28/ SWOLLEN ANKLES Encounters Encounter Location Date Provider Diagnosis [address] [address] 03/09/2025 ELÍAS CLAYTON Plan Of Treatment Next Appt Details Provider Name:COLLEEN MCKEON DUNG, 09/11/2025 01:20:00 PM, [address] [place], [address], Progress Notes * KI MCCRAY LDOB:0 1960 (65 yo F)Acc No.[id number]:03/09/2025 Progress Notes Patient: KI CR Provider: Mary Beth FOFANA M.D. :1960 A ge:64 Y S ex:Female Date:03/09/2025 Address:[address] [address] Pcp:ELÍAS CLAYTON M.D. Subjective: * Chief Complaints: * 2 8/ SWOLLEN ANKLES Billing Information: * Procedure Codes: * Electronic signature of VERONIQUE CLAYTON M.D. on 08/15/2025 at 12:06 PM EST Sign off status: Pending * Provider: Mary Beth FOFANA M.D. Date: 0 03/09/2025 Generated for Rafat lenz/Dory/Adeel on: 1 10/16/2024 12:06 PM EST
--- OUTSIDE RECORDS SUMMARY | 2025-07-16 08:20 | XMS_ITS ---
Author Organization [facility] Address [address] [place] [address] Care Team Providers Care Pneumatic Tester Mechanic Name Role ELÍAS Ramirez Unavailable [phone] COLLEEN SAENZ [phone] REASON FOR VISIT JW/28/CPX Encounters Encounter Location Date Provider Diagnosis [address] [id number] 07/16/2025 COLLEEN SAENZ Plan Of Treatment Next Appt Details Provider Name:COLLEEN RAZO, 09/11/2025 01:20:00 PM, [address] [place] [address], [id number], Progress Notes * KI MCCRAY LDOB:0 1960 (65 yo F)Acc No.[id number]:07/16/2025 Progress Notes Patient: KI CR Provider: Skip Saenz PA-C :1960 A ge:65 Y S ex:Female Date:07/16/2025 Address:[address] [place], [place] [id number] Pcp:ELÍAS CLAYTON M.D. Subjective: * Chief Complaints: * J W/28/CPX * Electronic signature of ROMEO SAENZ PA-C on 08/15/2025 at 12:06 PM EST Sign off status: Pending * Provider: Skip Saenz PA-C Date: 09/15/2024 Generated for Rafat lenz/Dory/Adeel on: 10/16/2024 12:06 PM EST
--- OUTSIDE RECORDS SUMMARY | 2025-08-09 23:59 | XMS_ITS | Continuity of Care Document ---
Author Organization [facility] [place] Address [address] [place] [address]- Care Team Providers Care Photography Sales Associate Name Role Phone Tomás Bassett MD Primary Care Physician Encounter 08/02/25 - 08/09/25 [facility] [place] [place] [address], [address] [place] [address]- Attending Physician: Tomás Bassett MD Admitting Physician: Tomás Bassett MD Referring Physician: Tomás Bassett MD Encounter Type: OutPatient One Time Allergies, Adverse Reactions, Alerts Substance Criticality Severity Reaction Reaction Severity Status codeine NAUSEA Active metFORMIN TONGUE SWELLING Ac tive cephalexin TONGUE SWELLED Ac tive lisinopril TONGUE SWELLING A ctive Medications amLODIPine 5 mg oral tablet 2 tablet = 10 mg, By Mouth, Daily at bedtime, # 30 tablet, 0 Refills, Maintenance, 02/17/24 7:44:00 AM EDT, Tablet, Partial fill upon patient request if the prescription is for a schedule II opioid drug. Start Date: 02/17/24 Status: Ordered Medication Dispense Status: Completed Quantity: 30.0 Unit: tablet Total Allowed Fills: 1 Fills Dispensed: 0 BuPROpion = 300 mg, By Mouth, Daily in AM, 0 Refills, Maintenance, 08/13/20 10:50:00 AM EST, Partial fill upon patient request if the prescription is for a schedule II opioid drug. Start Date: 08/13/20 Status: Ordered Medication Dispense Status: Completed Total Allowed Fills: 1 Fills Dispensed: 0 BusPIRone = 30 mg, By Mouth, 2 times a day, 0 Refills, Maintenance, 08/13/20 10:51:00 AM EST, Partial fill upon patient request if the prescription is for a schedule II opioid drug. Start Date: 08/13/20 Status: Ordered Medication Dispense Status: Completed Total Allowed Fills: 1 Fills Dispensed: 0 Colace 2-in-1 By Mouth, Daily at bedtime, 0 Refills, Maintenance, 08/13/20 10:51:00 AM EST, Partial fill upon patient request if the prescription is for a schedule II opioid drug. Start Date: 08/13/20 Status: Ordered Medication Dispense Status: Completed Total Allowed Fills: 1 Fills Dispensed: 0 doxycycline hyclate 50 mg oral capsule 1 capsule = 50 mg, By Mouth, 2 times a day, 0 Refills, Maintenance, 02/03/24 8:23:00 AM EDT, Partial fill upon patient request if the prescription is for a schedule II opioid drug. Start Date: 02/03/24 Status: Ordered Medication Dispense Status: Completed Total Allowed Fills: 1 Fills Dispensed: 0 Fluoxetine = 60 mg, By Mouth, Daily in AM, 0 Refills, Maintenance, 08/13/20 10:51:00 AM EST, Partial fill uponpatient request if the prescription is for a schedule II opioid drug. Start Date: 08/13/20 Status: Ordered Medication Dispense Status: Completed Total Allowed Fills: 1 Fills Dispensed: 0 Gabapentin = 600 mg, By Mouth, 4 times a day, 0 Refills, Maintenance, 08/13/20 10:51:00 AM EST, Partial fill upon patient request if the prescription is for a schedule II opioid drug. Start Date: 08/13/20 Status: Ordered Medication Dispense Status: Completed Total Allowed Fills: 1 Fills Dispensed: 0 HumaLOG Mix 75/25 subcutaneous suspension Subcutaneous Injection, 2 times a day, 100 units AM, 80 units HS, # 10 mL, 0 Refills, Maintenance, 02/17/24 7:42:00 AM EDT, Suspension, Partial fill upon patient request if the prescription is for a schedule II opioid drug. Start Date: 02/17/24 Status: Ordered Medication Dispense Status: Completed Quantity: 10.0 Unit: mL Total Allowed Fills: 1 Fills Dispensed: 0 hydrochlorothiazide 25 mg oral tablet 12.5 mg, 0.5, tablet, By Mouth, Daily in AM, Refills 0, Maintenance, 02/03/24 8:23:00 AM EDT, Partialfill upon patient request if the prescription is for a schedule II opioid drug. Start Date: 02/03/24 Status: Ordered Medication Dispense Status: Completed Total Allowed Fills: 1 Fills Dispensed: 0 ketoconazole 2% topical shampoo 1 application, Topically, Once, Three times weekly, # 120 mL, 0 Refills, Maintenance, 02/17/24 7:43:00 AM EDT, Shampoo, Partial fill upon patient request if the prescription is for a schedule II opioid drug. Start Date: 02/17/24 Status: Ordered Medication Dispense Status: Completed Quantity: 120.0 Unit: mL Total Allowed Fills: 1 Fills Dispensed: 0 omeprazole 20 mg oral enteric coated capsule 1 capsule = 20 mg, By Mouth, Daily in AM, # 30 capsule, 0 Refills, Maintenance, 02/17/24 7:42:00 AM EDT, EC Capsule, Partial fill upon patient request if the prescription is for a schedule II opioid drug. Start Date: 02/17/24 Status: Ordered Medication Dispense Status: Completed Quantity: 30.0 Unit: capsule Total Allowed Fills: 1 Fills Dispensed: 0 Risperidone = 2 mg, By Mouth, Daily at bedtime, 0 Refills, Maintenance, 08/13/20 10:51:00 AM EST, Partial fill upon patient request if the prescription is for a schedule II opioid drug. Start Date: 08/13/20 Status: Ordered Medication Dispense Status: Completed Total Allowed Fills: 1 Fills Dispensed: 0 Simvastatin = 40 mg, By Mouth, Daily at bedtime, 0 Refills, Maintenance, 08/13/20 10:51:00 AM EST, Partial fillupon patient request if the prescription is for a schedule II opioid drug. Start Date: 08/13/20 Status: Ordered Medication Dispense Status: Completed Total Allowed Fills: 1 Fills Dispensed: 0 tiZANidine 2 mg oral tablet 4 mg, 2, tablet, By Mouth, Every 8 hours, # 42 tablet, Refills 0, Tot. Refills 0, Maintenance, 04/18/24 9:53:00 AM EDT, Route to Pharmacy Electronically, [facility], Partial fill upon patient request if the prescription is for a schedule II opioid drug., 168, cm, 04/18/24 7:35:00 EDT, Height, 100, kg, 04/16/24 4:48:00 EDT, Dry Weight Start Date: 04/18/24 Stop Date: 04/25/24 Status: Ordered Medication Dispense Status: Completed Quantity: 42.0 Unit: tablet Total Allowed Fills: 1 Fills Dispensed: 0 tiZANidine 4 mg oral tablet 4 mg, 1, tablet, By Mouth, Daily at bedtime, # 30 tablet, Refills 0, Tot. Refills 0, Maintenance, 05/17/24 10:21:00 AM EDT, Route to Pharmacy Electronically, [id number], Partial fill upon patient request if the prescription is for a schedule II opioid drug., 168, cm, 05/11/24 13:29:0 0 EDT, Height, 100, kg, 04/16/24 4:48:00 EDT, Dry Weight Start Date: 05/17/24 Stop Date: 06/16/24 Status: Ordered Medication Dispense Status: Completed Quantity: 30.0 Unit: tablet Total Allowed Fills: 1 Fills Dispensed: 0 Trelegy Ellipta 200 mcg-62.5 mcg-25 mcg/inh inhalation powder 1 puffs, Inhalation, Daily in AM, at the same time every day, 0 Refills, Maintenance, 02/17/24 7:44:00 AM EDT, Powder, Partial fill upon patient request if the prescription is for a schedule II opioiddrug. Start Date: 02/17/24 Status: Ordered Medication Dispense Status: Completed Total Allowed Fills: 1 Fills Dispensed: 0 Problem List Condition Confirmation Course Effective Dates Status H ealth Status Informant COPD (chronic obstructive pulmonary disease) Confirmed Active Depression Confirmed Active History of lung cancer Confirmed Active HLD (hyperlipidemia) Confirmed Active HTN (hypertension) Confirmed Active Neurodermatitis Confirmed Active BLANCHE (iron deficiency anemia) Confirmed Active Spondylolisthesis, lumbar region Confirmed Active Obese class I Confirmed Active OCD (obsessive compulsive disorder) Confirmed Active Rosacea, acne Confirmed Active T2DM (type 2 diabetes mellitus) Confirmed Active Results Radiology Reports * Exam Date Time Procedure Performing Provider Status 08/02/25 11:16 AM MM Digital Mammo Screening Auth (Verified) Notes: (MM Digital Mammo Screening) Reason For Exam: SCREENING Z12,31 RESULT: MM Digital Mammo Screening PROCEDURE: MM Digital Mammo Screening INDICATION: Screening for breast cancer. No known palpable abnormalities. COMPARISON: Dating back to 07/29/2022 TECHNIQUE: Full-field digital CC and MLO 3D tomosynthesis images of both breasts were acquired. Computer-aided detection (CAD) was utilized in the interpretation of this study. DENSITY: There are scattered areas of fibroglandular density. FINDINGS: No suspicious masses, suspicious microcalcifications, or areas of architectural distortion are seen to suggest malignancy. IMPRESSION: No mammographic evidence of malignancy. RECOMMENDATION: Annual mammographic screening BI-RADS: 1 (Negative) Lay letter mailed to patient WSN: [id number] Ordering Physician: Tomás Bassett Dictated By: Cm Mcclain MD Dictated Date/Time: 08/02/25 1:53 pm Reviewed By: Cm Mcclain MD Signed By: Cm Mcclain MD Signed Date/Time: 08/02/25 1:53 pm Transcribed By: LEIGH Inventory Specialist Manager Date/Time: 08/02/25 1:53 pm Birads: Social History Social History Type Response Sexual Gender identity: Anita ntifies as female. Smoking Status Former smoker, quit more than 30 days ago entered on: 02/17/24 Sex Sex Representation Female (finding) Patient Care team information Care Team Personnel Name: Sunshine Araiza RN Position: S RN Member Role: Primary Care Nurse Name: Mariza Bañuelos RN Position: S RN Member Role: Primary Care Nurse Name: Tomás Bassett MD Position: S Outreach Member Role: PCP Address: [address] [place] [address] Telecom: Name: Judi Hui RN Position: S RN Member Role: Primary Care Nurse Name: Waldo Siu RN Position: S RN Member Role: Primary Care Nurse Care Team Related Persons Name: LORETTA NAVARRO Name: IRMA MCCRAY Insurance Providers Guarantor name: KI MCCRAY Health Plan Information #: 1 Payer: MEDICARE B Payer Identifier: KATHRINE Member Number: [id number] Group Number: NA Subscriber Identifier: [id number] Relationship to Subscriber: spouse Coverage Type: MEDICARE Coverage Verification Date: NA Telecom: KATHRINE Address:
[2025-08-15 10:07] VITALS: BP 130/60; PULSE 102; O2SAT 97; BMI 32.0
--- NOTE | 2025-08-15 10:07 | MHC.OFFVIS ---
Vital Signs 08/15/25 10:07 Height 5 ft 6 in Weight 198 lb 6.656 oz BMI 32.0 BP 130/60 Blood Pressure Location Rt brachial Position Sitting Pulse 102 H Pulse Source Pulse Oximeter Pulse Oximetry (%) 97 Oxygen Delivery Method Room Air Intake Visit Reasons: COPD Medical Insurance Clerk Required: No Sales Attendant Building Materials: Sales Attendant Building Materials offered & declined Accompanied by: Self / Same As Patient Allergies cephalexin Allergy (Severe, Verified 08/15/25 10:11) Swollen Tongue codeine Allergy (Severe, Verified 08/15/25 10:11) Nausea and Vomiting lisinopril Allergy (Severe, Verified 08/15/25 10:11) Swollen Tongue metformin Allergy (Severe, Verified 08/15/25 10:11) Swollen Tongue HPI Comments Details: The Patient is a 65-year-old woman with a known history of tobacco dependency and pulmonary nodules. She had been doing very well. She has been participating in the lung cancer screening program for several years now at [facility]. More recently she had a CT scan of the chest demonstrating a new 1.1 cm right-sided pulmonary nodule that was concerning in appearance in size. Patient denied any significant symptoms as far as she is aware. Denies any coughing or any hemoptysis. She denies any weight loss or night sweats. Her appetite is still good. We personally reviewed her CT scan in the office I explained to her my concerns with the size the nodule in the appearance and based on the CT scan pictures in appears to be malignant process in to improving otherwise. Therefore at this point will request urgent pulmonary function studies and urgent PET scan. he these results reasonable been we will facilitate a surgical resection. 07/16/2021 the patient is here for a pulmonary follow-up visit. Since we spoke to patient did undergo right-sided lobectomy at [facility]. The patient tolerated surgery well. The pathology demonstrated squamous cell carcinoma. no evidence of any lymph node metastases. All the margins were negative which is reassuring. However, with some evidence of visceral pleura invasion. The patient is squamous cell carcinoma was not responsive to PDL1. She did follow-up with Oncology. At this point the decision was to not give chemotherapy and to monitor closely. The patient will undergo CT imaging of the chest every 6 months. Right now will plan to schedule the 1st follow-up CT scan for October 19- which would be 6 months from her PET scan. Patient was able to quit smoking altogether. However still struggle. She has not had any nicotine products the last month. At this point I encouraged her to continue pressing forward and avoiding any nicotine supplementation at this point she continues to use the Advair 500. her respiratory status is stable. She can continue that dose and we can reassess on her follow-up visit. 10/09/2021 the patient is here for pulmonary follow-up visit. The patient was exposed to COVID. After she started developing a cough productive in nature. She was treated with a antibiotic. The patient is no better. Now she is expectorating also feeling chest tightness and some wheezing. Indeed she does have some wheezing on examination. Likely has a COPD exacerbation due to the viral syndrome. In addition to that prior to getting sick she did have a CT scan of the chest to follow up with her pulmonary nodules. The patient is status post a right upper lobe lobectomy consistent with squamous cell carcinoma. It appeared that in the recent CT scan of the chest 1 of the nodular densities measuring 6 mm slightly increased now to 8 mm in size. This is in the right lower lobe posterior pleural-based area. All the other nodules were otherwise stable. Will resend the patient at the multidisciplinary rounds. In the meantime will plan to repeat the CT scan in 3 months. The patient also will be treated for a post fell bacterial infection with the COPD exacerbation as well. She also has a nebulizer she will use that as well. 01/05/2022 the patient is here for a pulmonary follow-up visit. Since we last spoke the patient did have a brief viral syndrome resulting in a COPD exacerbation. This is COVID negative. She had just recovered from COVID back September. The patient did have a repeat CT scan of the chest done in November to follow-up abnormalities noted on her previous CT scan done September. It appeared that she has no significant changes based on her most recent CT scan from November. Therefore follow-up with a CT scan in 6 months time. The patient completed a course of prednisone. She has been doing well. Still having some shortness of breath but her oxygen levels have been reassuring in the high 90s. 07/17/2022 the patient is here for a pulmonary follow-up visit. Overall the patient has been complaining of increasing chest tightness and congestion. She is also on notices some increased shortness of breath. She has been using Advair now for some time. It is partially helpful. She did have a recent CT scan of the chest just in the beginning of the month which demonstrated stable pulmonary nodules. She will follow-up with the thoracic surgeon later today. At this point does not appear that there is any worsening suspicious nodules. The patient will continue to have serial CT scans to further monitor. In addition to this, the CT scan also demonstrates some evidence of ground-glass opacities suggesting pneumonitis primarily in the upper lung zones. Typically this could be a hypersensitivity type of reaction. Appears to be more subacute since the patient is not very symptomatic. She is not aware of any mold exposure or any birds or pets. Although this likely something in her surrounding that is affecting her breathing. Will switch her inhaler to Trelegy. If the patient is no better will consider her blood work to assess for different etiologies for pneumonitis. 01/29/2023 the patient is here for a pulmonary follow-up visit. The patient overall is doing well. She continues on the Advair. She has been noticing some chest tightness and wheezing. Intermittently. She does use her rescue inhaler a couple times a week. The patient did undergo a CT scan of the [facility] I personally reviewed. She does have postoperative changes which are unchanged. She also has pulmonary nodules that are intermediate in size and also have not changed in 6 months. This is reassuring. The patient will continue to follow closely with the serial CT scan protocol for thoracic surgery. We the patient also will be optimized with respiratory therapy by switching her over to Trelegy once she completes her medications. Otherwise the patient follow-up in 6 to 8 months. If she has any issues prior to that she is to call the office for an earlier evaluation. 08/06/2023 the patient is here for a pulmonary follow-up visit. The patient has been complaining of increasing dyspnea on exertion. Moderate severity. Has been using the Advair that she finally ran out so will go ahead and switch over to Trelegy inhaler. She has not had a CT scan as of yet. Her last CT scan was back in June 2022. Will go ahead and request a CT scan at this time to follow-up with her history of lung cancer and also pulmonary nodules. She should be getting CT scan yearly. The patient does have some wheezing on examination. Will go ahead and optimize respiratory therapy. If she is no better I will prescribe her a steroid pack so she can take it see if there is any improvement. 12/08/2023 the patient is here for pulmonary follow-up visit. Overall she is doing well. She continues on the Trelegy inhaler. Does have some dyspnea on exertion but mild in severity. Seems to be doing better. She does limit her activity but is mainly due to her back and other musculoskeletal issues. The patient's last CT scan was back in August 2022 which was personally by me. The patient did have postoperative changes and had does have pulmonary nodules that were following. She also has some areas of ground-glass opacity started on right more than left. They appeared to be stable when compared to her previous CT scan. I wonder decide just postoperative changes will continue to see if there is any progression of these ground-glass areas. The patient is next CT scan will be in January which would be 6 months after her last 1 as we are following closely for any recurrent lung cancer. She is now 3 years cancer-free and will continue to monitor her CT scans every 6 months for a total of 5 years after diagnosis. 06/09/2024 the patient is here for a pulmonary follow-up visit. The patient overall has been doing well. She continues with the current respiratory therapy. Denies any chest pains or shortness of breath. She did have a CT scan back in 02/17/2024 demonstrating stable postoperative changes without any recurrence of lung cancer. Will continue to follow her CT scans every 6 months for 5 years. She has now been 3 years free of cancer. 12/11/2024 the patient is here for a pulmonary follow-up visit. Overall she is doing well from a respiratory status. He continues on the Trelegy. Her last CT scan of the chest was back in July 2024 which we personally reviewed. Pulmonary nodules and postoperative changes are stable. Although it does document that she has severe coronary artery calcifications. Explained to her that this is stable atherosclerosis but the patient does have symptoms of dyspnea. In view of those symptoms important to make sure that she has a cardiac evaluation. I will go ahead and put a referral in to Cardiology. In addition to this the patient is having some daytime drowsiness. She has noticed some lower extremity edema. She does have snoring per report of her . She does wake up tired with an [place] score of 11/24. She was scheduled for in-lab sleep study but she had a hard time doing that. Therefore request a home sleep study at this time that we more effective for her. 08/15/2025 the patient is here for pulmonary follow-up visit. Since we last spoke she is grieving the loss of her . He several months ago. He was very sick. He was in hospice care. From a breathing standpoint she had been doing okay until few weeks ago when she started developing some chest tightness. She is not sure if is her just anxiety in grieving or if his her asthma. She has use her nebulizer therapy and albuterol and have helped. Right now she is doing a little bit better she does have some congestion with cough. Will go ahead and provide her some medicines in case she gets worse but I do believe that she is doing okay from a breathing standpoint. She did undergo a CT scan of the chest which was personally by me that was June 2025 demonstrating stable postoperative changes from a history lung cancer and stable pulmonary nodules. She will continue with serial CAT scans at this time. The patient will follow-up in 4-6 months if any issues arise she can always call for further recommendations. [facility] Medical History (Updated 12/11/24 @ 20:20 by Jim Mcgrath MD) Dyspnea Coronary artery calcification Personal history of nicotine dependence Lung cancer (~2020) Adrenal adenoma Tubular adenoma of colon (~2006) Depression Neurodermatitis Obesity Type 2 diabetes mellitus (~2002) Hyperlipidemia Hypertension COPD (chronic obstructive pulmonary disease) Pulmonary nodules Surgical History History of lobectomy of lung (~2020) History of endoscopy History of cataract surgery (~2020) History of hemorrhoidectomy History of colonoscopy History of Family History Father Lung cancer Mother Bladder cancer Other Lymphoma Social History Patient Tobacco Use Status: Former Tobacco user Tobacco use type: Cigarette Years Smoked: 44 years Quit 04/14/21 Review of Systems Const Denies lethargy, Denies malaise, Denies night sweats, Denies poor appetite and Reports weight loss ENT Denies change in voice, Denies lip swelling, Denies mouth pain, Denies nasal congestion, Denies nasal discharge and Denies tongue swelling Card Denies chest pain and Reports dyspnea on exertion Resp Denies change in phlegm color, Reports chest congestion, Reports cough, Reports dyspnea on exertion and Reports wheezing GI Denies abdominal pain Musc Denies no additional complaints Neuro Denies Neuro-related abnormal movements Psych Denies no additional complaints Edwin/Lymph Denies easy bleeding and Denies lymphadenopathy Aller/Immun Denies lip swelling, Denies tongue swelling and Reports wheezing Physical Exam Vital Signs: Last Vital Signs Pulse 102 H 08/15/25 10:07 BP 130/60 08/15/25 10:07 Pulse Ox 97 08/15/25 10:07 Oxygen Delivery Method Room Air 08/15/25 10:07 BMI result Body Mass Index 32.0 Const General: alert Neck Neck: Yes normal visual inspection, Yes full ROM and Yes no lymphadenopathy Chest Chest palpation & inspection: normal inspection of the chest Resp Auscultation: no wheezes and diminished lung sounds Cardio Rate: regular rate Rhythm: regular rhythm Heart sounds: S1 normal heart sound present and S2 normal heart sound present GI Palpation (GI): Soft to palpation and nontender Auscultation: normal bowel sounds Skin General skin exam: rashes and/or lesions noted Assessment & Plan Assessment & Plan (1) Pulmonary nodules: Code(s): R91.8 - Other nonspecific abnormal finding of lung field Category: Medical (2) COPD (chronic obstructive pulmonary disease): Code(s): J44.9 - Chronic obstructive pulmonary disease, unspecified Category: Medical Qualifiers: COPD type: chronic bronchitis Chronic bronchitis type: simple Qualified Code(s): J41.0 - Simple chronic bronchitis (3) Lung cancer: Onset Date: ~2020 Comment: (Squamous Cell Carcinoma - pT2a pN0 - Stage Ib- s/p RUL lobectomy 04/2021) Code(s): C34.90 - Malignant neoplasm of unspecified part of unspecified bronchus or lung Category: Medical Qualifiers: Laterality: right Lung location: unspecified part of lung Qualified Code(s): C34.91 - Malignant neoplasm of unspecified part of right bronchus or lung (4) Coronary artery calcification: Code(s): I25.10 - Atherosclerotic heart disease of tribal coronary artery without angina pectoris Category: Medical (5) Dyspnea: Code(s): R06.00 - Dyspnea, unspecified Category: Medical Qualifiers: Dyspnea type: dyspnea on exertion Qualified Code(s): R06.09 - Other forms of dyspnea Plan continue Trelegy [address] chest ar JERRY ramesh 07/24 stable, serial CT chest 07/2026 quit smoking cessation >3yr F/U 6 months Orders: Orders CT chest wo IV con 1 Year C34.91 - Malignant neoplasm of unspecified part of right bronchus or lung Medications: New methylprednisolone (Medrol (Teodoro)) PO PER PKG DIR 21 ea 0RF 6 days azithromycin 500 mg PO DAILY 5 tabs 0RF 5 days Coding Level of Care Code Est Pt Level 4 (58218) Diagnoses Pulmonary nodules R91.8 Simple chronic bronchitis J41.0 COPD type: chronic bronchitis Chronic bronchitis type: simple Malignant neoplasm of right lung, unspecified part of lung C34.91 Laterality: right Lung location: unspecified part of lung Coronary artery calcification I25.10 Dyspnea on exertion R06.09 Dyspnea type: dyspnea on exertion Time Spent (min) 16
--- OUTSIDE RECORDS SUMMARY | 2025-08-15 12:05 | XMS_ITS | Clinical Summary ---
Author Organization [facility] Address [address] [place] [address] Care Team Providers Care Splitter Machine Name Role Phone Tomás Bassett MD Primary Care Provider [phone] Wade Jackson MD Unavailable [phone] Allergies Active Allergy Reactions Criticality Noted Date Comments Cephalexin Swelling Medium 01/31/2020 Codeine GI Intolerance/Nausea/Vomiting Low 01/30 Lisinopril Swelling Medium 01/31/2020 Metformin Swelling Medium 01/31/2020 Medications amLODIPine (NORVASC) 5 MG tablet 0 Active buPROPion (WELLBUTRIN XL) 150 MG 24 hr tablet 0 Active buPROPion (WELLBUTRIN XL) 300 MG 24 hr tablet 0 Active clindamycin (CLEOCIN-T) 1 % lotion HENOK EXT AA QD 0 Active FLUoxetine (PROzac) 20 MG capsule 0 Active fluticasone-salm eterol (ADVAIR) 500-50 mcg/inh diskus inhaler 0 Active gabapentin (NEURONTIN) 600 MG tablet 0 Active HUMALOG MIX 75/25 (75-25) 100 UNIT/ML injection 0 Active neomycin-polymyx in-hydrocortison e (CORTISPORIN) 3.5-06812-8 otic suspension INSTILL 4 GTT IN EACH AFFECTED EAR TID X 7 DAYS 0 Active risperiDONE (RisperDAL) 2 MG tablet 0 Active simvastatin (ZOCOR) 40 MG tablet 0 Active valACYclovir (VALTREX) 1000 MG tablet TK 1 T PO TID FOR 7 DAYS 0 Active aspirin 81 MG chewable tablet Chew 81 mg daily. Active ibuprofen (MOTRIN) 800 mg tablet Take 800 mg by mouth 4 times daily (every 6 hours) as needed for mild pain. Active acetaminophen (TYLENOL) 500 MG tablet Take 500 mg by mouth 4 times daily (every 6 hours) as needed for mild pain. Active ciprofloxacin (CIPRO) 500 MG tabletIndication s:Urinary tract infection without hematuria, site unspecified Take 1 tablet (500 mg total) by mouth 2 (two) times a day. 10 tablet 0 Active Ozempic, 2 MG/DOSE, 8 MG/3ML prefilled pen injection 5 Active hydroCHLOROthiaz marina (HYDRODIURIL) 25 MG tablet Take 0.5 tablets (12.5 mg total) by mouth. 4 Active Trelegy Ellipta 200-62.5-25 MCG/ACT inhaler 5 Active Insulin Pen Needle (B-D ULTRAFINE III SHORT PEN) 31G X 8 MM Misc 1 each by Other (specify) route. 3 Active busPIRone (BUSPAR) 30 MG tablet Take 1 tablet (30 mg total) by mouth 2 times a day. Active docusate sodium (COLACE) 100 MG capsule Take 1 capsule (100 mg total) by mouth. Active doxycycline (VIBRAMYCIN) 50 MG capsule Take 1 capsule (50 mg total) by mouth. 4 Active Encounters Date Type Department Care Team Description 08/06/2025 3:25 PM EST Ancillary Procedure [facility] [place] [address] [id number] Wade Jackson MD Chest pain at rest from Last 3 Months Social History Tobacco Use Types Packs/Day Years Used Date Smoking Tobacco: Every Day Cigarettes 0.3 44 Smokeless Tobacco: Never Tobacco Cessation:Ready to Q uit: Not Asked; Counseling Given: Not Answered Alcohol Use Standard Drinks/Week Comments Not Currently 0 (1 standard drink = 0.6 oz pur e alcohol) Comments Unknown Sex and Gender Information Value Date Recorded Sex Assigned at Female 12/21/2024 10:39 AM EDT Legal Sex Female 10:30 AM EDT Gender Identity Female 12/21/2024 10:39 AM EDT Sexual Orientation Heterosexual (straight) 12/21 10:39 AM EDT Last Filed Vital Signs Vital Sign Reading Time Taken Comments Blood Pressure 125/52 12/25/2024 10:18 AM EDT Pulse 87 12/25/2024 10:18 AM EDT Temperature 37.2 C (99 F) 05/20/2023 6:25 PM EDT Respiratory Rate - - Oxygen Saturation 96% 12/25/2024 10: 18 AM EDT Inhaled Oxygen Concentration - - Weight 92.9 kg (204 lb 12.8 oz) 025 10:18 AM EDT Height 167.6 cm (5' 6 ) 01/31/2020 5:57 PM EDT Body Mass Index 33.06 01/31/2020 5:57 PM EDT Plan of Treatment Upcoming Encounters Date Type Department Care Team (Late st Contact Info) Description 09/13/2025 10:00 AM EST Appointment [facility] [address] [phone] Wade Jackson MD [address] [place] [address] 09/24/2025 11:20 AM EST Office Visit [facility] [address] [phone] Wade Jackson MD [address] [address] 10/09/2025 4:00 PM EST Consult [facility] [address] [facility] [address] [place] [phone] Keven Casanova MD [address] [facility] [address] [place], [place] [address] Health Maintenance Due Date Last Done Comments Hepatitis C Virus Screening 1961 HIV Screening 1974 DTaP/Tdap/Td Vaccines (1 - Tdap) 1980 Pap Smear (Ages 21-65) 1982 Mammogram 2001 Colonoscopy 2006 Pneumococcal Vaccines 50+ (1 of 1 - PCV) 2011 RSV Vaccine 50 years and older and Patients (1 - Risk 50-74 years 1-dose series) 2011 Zoster (Shingles) Vaccine (1 of 2) 2011 COVID-19 Vaccine ( season) 2025 07/19/2024, 09/06/2023, 06/04/2022, Additional history exists Lipid Panel Discontinued 01/01/2025 Hemoglobin A1C Discontinued 01/04/2025, 07/31, 01/26/2024, Additional history exists Influenza Vaccine Completed 06/01/2025, , 06/04/2022, Additional history exists Hepatitis B Vaccines Aged Out No long er eligible based on patient's age to complete this topic Procedures Procedure Name Priority Date/Time Associated Diagnosis Comments LIPID PANEL REFLEX DIRECT LDL Routine 01/01/2025 9:08 AM EDT Abnormal ECG from Last 3 Months or Most Recently Relevant to Health Maintenance Results * Lipid Panel Reflex Direct LDL (01/01/2025 9:08 AM EDT) Cholesterol, Total 139 <200 mg/dL [email or web address] Cholesterol, HDL 72 > OR = 50 mg/dL [email or web address] Triglycerides 107 <150 mg/dL [email or web address] LDL Cholesterol 48 mg/dL (calc) [email or web address] Comment: Reference range: <100 Desirable range <100 mg/dL for primary prevention; <70 mg/dL for patients with CHD or diabetic patients with > or = 2 CHD risk factors. LDL-C is now calculated using the Lisandro calculation, which is a validated novel method providing better accuracy than the Friedewald equation in the estimation of LDL-C. David MEDEL et al. MISTY. 2013;310(19): 6981-3329 (http://education.[employer]/faq/CSE936) Cholesterol/HDL Ratio 1.9 <5.0 (calc) [email or web address] Non HDL Chol. (LDL+VLDL) 67 <130 mg/dL (calc) [email or web address] Comment: For patients with diabetes plus 1 major ASCVD risk factor, treating to a non-HDL-C goal of <100 mg/dL (LDL-C of <70 mg/dL) is considered a therapeutic option. Blood Blood specimen / Unknown 01/01/2025 9:08 AM EDT 01/01/2025 9:09 AM EDT Narrative [facility] - 01/01/2025 10:20 PM EDT FASTING:YES FASTING: YES Wade Luna MD LAB BLOOD ORDERABLES Final Re sult [employer] [address] [place] [phone] from Last 3 Months or Most Recently Relevant to Health Maintenance [facility] MEDIC[facility] PART A & B [facility] Care Teams Splitter Machine Relationship Specialty Start Date End Date Tomás Bassett MD [address] [place] [address] PCP - General Internal Medicine 01/31/20 Wade Jackson MD [address] [place] [address] Primary [facility] 12/21/24
--- OUTSIDE RECORDS SUMMARY | 2025-08-15 12:05 | XMS_ITS | Clinical Summary ---
Author Organization [facility] Address [address] [place] [address] Phone Care Team Providers Care Airbrush Artist Name Role Phone Tomás Bassett MD Primary Care Provider [phone] Allergies Active Allergy Reactions Criticality Noted Date Comments Cephalexin Swelling Medium 12/10/2017 Swelling of tongue Codeine Nausea And Vomiting, Nausea Only,Swelling Low 05/11/2014 Lisinopril Swelling Medium 12/10/2017 Swelling of tongue Metformin Swelling Medium 07/10/2016 Swelling of tongue Medications aspirin 81 mg Cap aspirin 81mg Active simvastatin (ZOCOR) 40 MG tablet 10/15/19 23 Active risperiDONE (RISPERDAL) 2 MG tablet Take 2 mg by mouth daily. Active buPROPion (WELLBUTRIN XL) 300 MG ER 24 hr tablet 10/27/19 23 Active buPROPion (WELLBUTRIN XL) 150 MG ER 24 hr tablet 10/27/19 23 Active busPIRone (BUSPAR) 30 MG tablet Take 30 mg by mouth 2 (two) times a day. Active FLUoxetine (PROZAC) 60 mg Tab 10/27/19 23 Active cholecalciferol, vitamin D3, (VITAMIN D3 ORAL) 2,000 Int'l Units. Active BD INSULIN PEN NEEDLE UF SHORT 31 gauge x 01/12 NdleIndications: Type 2 diabetes mellitus with hyperglycemia, with long-term current use of insulin 1 each by Miscellaneous route 2 (two) times a day. 200 each 3 02/19/20 23 Active doxycycline hyclate (VIBRAMYCIN) 50 MG capsule Take 1 capsule by mouth 2 (two) times a day. 02/19/20 Active omeprazole (PRILOSEC) 20 mg TbEC Take 1 tablet by mouth as needed. 02/21/20 Active TRELEGY ELLIPTA 200-62.5-25 mcg inhaler Inhale 1 puff into the lungs daily. 10/12/19 Active blood-glucose meter,continuous (FREESTYLE BLUE 3 READER) MiscIndications: Type 2 diabetes mellitus with peripheral neuropathy,group home current use of insulin Use as directed to monitor glucose 1 each 10/14/19 Active hydroCHLOROthiaz marina 25 MG tablet Take 25 mg by mouth daily. 01/12/20 Active docusate sodium (COLACE) 100 MG capsule Take 100 mg by mouth nightly at bedtime. Active multivitamins with iron-folic acid (CENTRUM COMPLETE) 18-400 mg-mcg Tab Take 1 tablet by mouth daily. Active amLODIPine (NORVASC) 5 MG tablet Take 10 mg by mouth daily. Active insulin syringe-needle U-100 1 mL 31 gauge x 5/16 SyrgIndications: Type 2 diabetes mellitus with peripheral neuropathy 1 each by Miscellaneous route 2 (two) times a day. 200 each 3 01/26/20 Active ketoconazole (NIZORAL) 2 % shampoo Apply topically 2 (two) times a week. 02/17/20 Active clindamycin (CLEOCIN T) 1 % lotion 01/02/20 Active HUMALOG MIX 75-25,U-100,INSU LN 100 unit/mL (75-25) SuspIndications: Type 2 diabetes mellitus with peripheral neuropathy 60 units once daily 190 mL 3 01/05/20 Active blood-glucose sensor (FREESTYLE BLUE 3 PLUS SENSOR) DeviIndications: Type 2 diabetes mellitus with peripheral neuropathy,group home current use of insulin Use as directed to monitor glucose, change q15 days 6 each 3 05/28/20 25 Active semaglutide (OZEMPIC) 2 mg/dose (8 mg/3 mL) subcutaneous injection penIndications:T ype 2 diabetes mellitus with peripheral neuropathy Inject 2 mg under the skin once a week. 9 mL 1 05/28/20 25 Active gabapentin (NEURONTIN) 600 MG tabletIndication s:Type 2 diabetes mellitus with peripheral neuropathy Take 1 tablet (600 mg total) by mouth 4 (four) times a day. 360 tablet 1 06/06/20 25 Active Active Problems Problem Noted Date Diagnosed Date Depression 01/07/2025 HLD (hyperlipidemia) 01/07/2025 HTN (hypertension) 01/07/2025 Assessment & Plan (01/07/2025 9:48 AM EDT): Well controlled COPD (chronic obstructive pulmonary disease) 06/2025 Long-term current use of inj ectable noninsulin antidiabetic medication Assessment & Plan (08/18/2024 11:16 AM EST): Will maintain her ozempic dosing at 2 mg weekly Assessment & Plan (12/21/2022 11:35 AM EDT): Control has greatly improved based upon the patient's freestyle blue 2 sensor download. No frequent or severe hypoglycemia. Since her mounjaro has been increased to 15 mg her glucose levels are much more stable. She still has occasional glucose spikes due to dietary intake but she is working on improving this. Will maintain her current regimen. Continue to work on eating healthy and being active. To call or message with any issues managing her glucose control. [facility] Se[facility]. Labs ordered today. Type 2 diabetes mellitus with peripheral neuropa thy Assessment & Plan (01/07/2025 9:50 AM EDT): Control has been reasonable. Has done well with ozempic. No frequent or severe lows. Control somewhat worse w/ recent stresses. Advised she continue to do her best to work on eating healthy & keeping active. To call or send in BG with problems with glycemic control. Will do labs. To call if hasn't heard from us within 1-2 weeks. Up to date with [facility]. Maximino/cretiago up to date, normal. Assessment & Plan (08/18/2024 11:17 AM EST): Control is good based upon the patient's freestyle blue 3 sensor download. No frequent or severe hypoglycemia. She will have an occasional low, she is not sure what causes the lows but will correct and then is fine. Will maintain her regimen. Continue to work on eating healthy and being active. To call or message with any issues managing her glucose levels. Up to date with ophtho. Foot and nail care good. Her neuropathy symptoms are worsening but we cannot increase her gabapentin. Will order labs today Assessment & Plan (05/18/2024 4:59 PM EDT): Control improved. Has done well with weight loss with ozempic. Has stopped pm dose of insulin & still some lows overnight, when shouldn't have any insulin on board (vs perhaps some due delayed absorption given am dose is still quite high?). This is infrequent now, doesn't typically happen if she has an hs snack & the rest of the day looks ok, so will continue current for now. Continue to work on eating healthy & keeping active. To call or send in BG with problems with glycemic control. Will do labs. To call if hasn't heard from us within 1-2 weeks. Up to date with ophtho. Foot & nail care good. BP under reasonable control. Assessment & Plan (01/26/2024 10:36 AM EDT): Control is reasonable/good based upon the patient's freestyle blue 3 sensor download. No frequent or severe hypoglycemia. She is not having any issues with tolerating the ozempic. Is finding it does help with her glucose control. Will maintain her regimen. Continue to work on eating healthy and being active. To call or message with any issues managing her glucose levels. Up to date with ophtho. Will order labs today Assessment & Plan (10/14/2023 7:42 PM EST): Control suboptimal. No frequent or severe hypoglycemia. She continues to eat poorly & excessively despite maximum dose of mounjaro. Encouraged her to work on making better choices & not buying junk food so it will not be around to eat. Continue to work on eating healthy & keeping active. Will shift to blue 3 if covered/affordable. To call or send in BG with problems with glycemic control. Will do labs today. To call if hasn't heard from us within 1-2 weeks. Up to date with ophtho. Umalb/creat up to date, normal. BP under reasonable control. Assessment & Plan (06/25/2023 11:38 AM EDT): Control is reasonable/good based upon the patient's freestyle blue 2 sensor download. No frequent or severe hypoglycemia. She recently has been having a couple lows due to not focusing on what she has to do to take care of herself, she is taking care of her . She will remember next week to lower her insulin dosing on the day she takes mounjaro. Continue to work on eating healthy and being active. To call or message with any issues managing her glucose levels. Up to date with ophtho. Will order labs today Assessment & Plan (03/29/2023 6:56 PM EDT): Control suboptimal. No frequent or severe hypoglycemia. Suspect she is currently using humalog vs humalog 75/25 - advised her to check at home what she had been on vs what she is currently on & if I am correct we will shift her back to the pre- mixed insulin. She is having a hard time getting mounjaro, asked her to call around to pharmacies to see what doses she can get & message me so we can send over rx. Continue to work on eating healthy & keeping active. To call or send in BG with problems with glycemic control. Will do labs today. To call if hasn't heard from us within 1-2 weeks. Up to date with [employer]. Foot & nail care good. BP under reasonable control. Assessment & Plan (12/21/2022 11:27 AM EDT): Her neuropathy symptoms have been worse recently. Especially in the morning. Will increase her morning dose of gabapentin from 600 mg to 900 mg. She will take 1- 600 mg tablet and 1- 300 mg to see how she tolerates the higher dose, if she has issues she will call or message through the patient gateway Kwan's palsy COPD exacerbation Lumbar spondylosis Malignant neoplasm of upper lobe of right lung Peripheral polyneuropathy Spinal stenosis of lumbar re gion with neurogenic claudication Squamous cell carcinoma of right lung Weakness of both lower extremities group home current use of insulin Assessment & Plan (08/18/2024 11:16 AM EST): Will maintain her insulin dosing at 100 units daily Encounters Date Type Department Care Team Description 08/09/2025 Telephone [facility] Endocrinology [facility] [address] [place] [address] Waleska Cochran PA-C Forms & Paperwork 08/07/2025 Telephone [facility] Endocrinology [facility] [address] [place] [address] Hermelinda Zurita CMA 05/30/2025 Refill [facility] Endocrinology [facility] [address] [place] [address] Yina Martinez Medication Refill; Medication Problem 05/28/2025 Refill [facility] Endocrinology [facility] [address] [place] [address] Odalys El MA Medication Refill from Last 3 Months Social History Tobacco Use Types Packs/Day Years Used Date Smoking Tobacco: Former Cigarettes 1.5 46 1 976 - 2021 Smokeless Tobacco: Never Tobacco Cessation:Counseling Given: Not Answered Alcohol Use Standard Drinks/Week Comments Never 0 (1 standard drink = 0.6 oz pur e alcohol) Education Answer Date Recorded Are you interested in more education? Not on keiry e 12/25/2022 Are you concerned about learning? Not on file 12/25/2022 No 12/25/2022 No 12/25/2022 Digital Access Answer Date Recorded No 01/26/2023 No 01/26/2023 Reliable internet access at home? Not on file 01/26/2023 Device with a working camera? Not on file Comments Unknown Sex and Gender Information Value Date Recorded Sex Assigned at Female 12/06/2020 1:05 PM EDT Legal Sex Female 10:16 AM EST Gender Identity Female 12/06/2020 1:05 PM EDT Sexual Orientation Choose not to disclose 2020 1:05 PM EDT Last Filed Vital Signs Vital Sign Reading Time Taken Comments Blood Pressure 125/65 01/04/2025 1:39 PM EDT Pulse 95 01/04/2025 1:39 PM EDT Temperature - - Respiratory Rate - - Oxygen Saturation 97% 01/04/2025 1:39 PM EDT Inhaled Oxygen Concentration - - Weight 92.4 kg (203 lb 12.8 oz) 01/04/2025 1:39 PM EDT Height 169.7 cm (5' 6.81 ) 08/18/2024 1 0:42 AM EST Body Mass Index 32.1 08/18/2024 10:42 AM EST Plan of Treatment Upcoming Encounters Date Type Department Care Team (Late st Contact Info) Description 08/15/2025 1:10 PM EST Office Visit [facility] Endocrinology [address] [place] [address] Waleska Cochran PA-C [address] [place] [phone] 10/04/2025 10:40 AM EST Office Visit [facility] Endocrinology [address] [place] [address] Stephanie Vasquez MD [address] [place] [phone] Health Maintenance Due Date Last Done Comments Adult Td,Tdap Booster 1961 DEPRESSION SCREENING 1973 HEPATITIS C SCREENING 1979 HIV ONE-TIME SCREENING (18-65 YEARS) 1979 PNEUMOCOCCAL VACCINES (50+ years) (1 of 2 - PCV) 1980 ZOSTER VACCINES (1 of 2) 1980 PAP SMEAR 1982 MAMMOGRAM 2001 COLOGUARD 2006 COLONOSCOPY 2006 COLORECTAL CANCER SCREENING 2006 FIT TEST 2006 FOBT 2006 SIGMOIDOSCOPY 2006 VIRTUAL COLONOSCOPY 2006 RSV VACCINE (1 - Risk 50-74 years 1-dose series) 2011 DIABETIC EYE EXAM 12/21/2022 URINE MICROALBUMIN/CREATININE RATIO 03/25/2024 03/25/2023 INFLUENZA VACCINE (#1) 2025 06/07/2021, 2014 COVID-19 VACCINE (1 - 2024- season) 2025 BLOOD PRESSURE 07/07/2025 01/04/2025 HEMOGLOBIN A1C 07/07/2025 01/04/2025, 07/31, 01/26/2024, Additional history exists POTASSIUM LEVEL 01/04/2026 01/04/2025, 07/31, 05/29/2024, Additional history exists SMOKING Hx and SMOKELESS TOBACCO SCREENING 01/04/2026 01/04/2025 HEPATITIS A VACCINES Aged Out No long er eligible based on patient's age to complete this topic HIB VACCINES Aged Out No longer eligi ble based on patient's age to complete this topic MENINGOCOCCAL VACCINES (ACWY) Aged Out No longer eligible based on patient's age to complete this topic MENINGOCOCCAL VACCINES (B) Aged Out N o longer eligible based on patient's age to complete this topic Medical Devices Not on file Procedures Procedure Name Priority Date/Time Associated Diagnosis Comments HEMOGLOBIN A1C Routine 01/04/2025 2:44 PM EDT Type 2 diabetes mellitus with peripheral neuropathy BASIC METABOLIC PANEL (BMP) Routine 01/04/2025 2:44 PM EDT Type 2 diabetes mellitus with peripheral neuropathy MICROALBUMIN/CREATIN INE RATIO, RANDOM URINE Routine 03/25/2023 2:40 PM EDT Type 2 diabetes mellitus with peripheral neuropathy from Last 3 Months or Most Recently Relevant to Health Maintenance Results * (ABNORMAL) Hemoglobin A1c (01/04/2025 2:44 PM EDT) HEMOGLOBIN A1C 6.9(H) 4.3 - 5.8 % [facility] Blood 01/04/2025 2:44 PM EDT 01/04/2025 2:58 PM EDT us Stephanie Vasquez MD LAB BLOOD BKR ORDERABL ES Final Result [facility] [address] [place], [place] [id number] * (ABNORMAL) Basic metabolic panel (01/04/2025 2:44 PM EDT) SODIUM 136 133 - 146 mmol/L [facility] CHLORIDE 99 96 - 108 mmol/L [facility] POTASSIUM 4.2 3.3 - 5.1 mmol/L [facility] CO2 25 21 - 35 mmol/L [facility] BUN 13 6 - 19 mg/dL [facility] CREATININE 0.90 0.5 - 1.5 mg/dL [facility] GLUCOSE 132(H) 70 - 99 mg/dL [facility] CALCIUM 9.8 8.4 - 10.3 mg/dL [facility] EGFR 72 >59 mL/min/1.7 3m2 [facility] Comment:Estimated glomerular filtration rate calculated using the CKD-EPI refit equation. ANION GAP 16 10 - 20 mmol/L [facility] Blood 01/04/2025 2:44 PM EDT 01/04/2025 2:58 PM EDT Stephanie Vasquez MD LAB BLOOD BKR ORDERABL ES Final Result [address] [id number] * Microalbumin/creatinine ratio, random urine (03/25/2023 2:40 PM EDT) URINE MICROALBUMIN <1.2 0 - 2.3 mg/dL [facility] URINE CREATININE 64 mg/dL [facility] MICROALB/CRE RATIO NOT CALCULATED 0 - 20 mg/g Cre [facility] Comment:due to Microalbumin <1.2 Urine (Urine) 03/25/2023 2:4 0 PM EDT 03/25/2023 2:41 PM EDT us Stephanie Vasquez MD LAB URINE ORDERABLES F inal Result Performing Organization Address City/[facility]/ZIP Co de Phone Number [address] [address] from Last 3 Months or Most Recently Relevant to Health Maintenance Insurance CIGNA PPO CIGNA PPO CIG PPO CIGNA PPO CIGNA PPO CIGNA PPO CIGNA PPO PPO PPO Care Teams Airbrush Artist Relationship Specialty Start Date End Date Tomás Bassett MD [address] [place] [phone] [email or web address] PCP - General Internal Medicine 07/18/20 Additional Source Comments The information contained in this document represents components of the legal health record. It is not the complete legal health record.[facility]
--- OUTSIDE RECORDS SUMMARY | 2025-08-15 12:05 | XMS_ITS | Encounter Summary ---
Author Organization [facility] Address [address] [place] [address] Phone Care Team Providers Care Applications Manager Name Role Phone Tomás Bassett MD Primary Care Provider [phone] Encounter Details Date Type Department Care Team (Late st Contact Info) Description 01/12/2022 Procedure Pass MRI, [facility] [address] [place] [address] Social History Tobacco Use Types Packs/Day Years Used Date Smoking Tobacco: Never Assessed Comments Unknown Sex and Gender Information Value Date Recorded Sex Assigned at Female 12/06/2020 1:05 PM EDT Legal Sex Female 10:16 AM EST Gender Identity Female 12/06/2020 1:05 PM EDT Sexual Orientation Choose not to disclose 2020 1:05 PM EDT documented as of this encounter Plan of Treatment Upcoming Encounters Date Type Department Care Team (Late st Contact Info) Description 08/15/2025 1:10 PM EST Office Visit [facility] Endocrinology Clinic [address] [place] [address] [place] [address] Waleska Cochran PA-C [address] [place] [address] 10/04/2025 10:40 AM EST Office Visit [facility] Endocrinology Clinic [address] [place] [address] [place] [address] Stephanie Vasquez MD [address] [place] [phone] [email or web address] documented as of this encounter Visit Diagnoses Not on filedocumented in this encounter Care Teams Applications Manager Relationship Specialty Start Date End Date Tomás Bassett MD [address] [place] [phone] [email or web address] PCP - General Internal Medicine 07/18/20 documented as of this encounter Additional Source Comments The information contained in this document represents components of the legal health record. It is not the complete legal health record.[facility]
--- OUTSIDE RECORDS SUMMARY | 2025-08-15 12:05 | XMS_ITS | Encounter Summary ---
Author Organization [facility] Address [address] [place] [phone] Phone Care Team Providers Care Physical Trainer Name Role Phone Tomás Bassett MD Primary Care Provider [phone] Encounter Details Date Type Department Care Team (Late st Contact Info) Description 08/07/2025 Telephone [facility] Endocrinology Clinic [address] [place] [address] [facility] [address] [place] [address] Social History Tobacco Use Types Packs/Day Years Used Date Smoking Tobacco: Former Cigarettes 1.5 46 1 976 - 2022 Smokeless Tobacco: Never Alcohol Use Standard Drinks/Week Comments Never 0 [...] PM EDT documented as of this encounter Progress Notes * Chantelle Ware - 08/14/2025 8:39 AM EST Pt is scheduled for 08/15/2025 at 1:10 pm with Cristiane * Beverly Saenz MA - 08/09/2025 10:21 AM EST Called pt notified FD- pls see if you can squeeze her in sooner or place on cancellation list TY * Ariadne Hidalgo - 08/08/2025 4:05 PM EST Varsha calls the office to request the Jhonatan 3 script again, as she only has 2 days left. Requests a call back if there is an issue. * Beverly Saenz MA - 08/08/2025 9:44 AM EST Tried to call pt x1 - will need to wait until her upcoming appointment as insurance needs her to beseen every 6 months and can't use notes from december * Anu Hagan MA - 08/08/2025 9:17 AM EST Faxed and confirmed last office note from 01/04/2025 to Medicare fax # [phone] * Anu Hagan MA - 08/08/2025 9:10 AM EST Called and spoke with [facility] pharmacy regarding the prescription for blood- glucose sensor (FREESTYLE JHONATAN 3 PLUS SENSOR) Ana Maria . They are billing it to Medicare part D, but when they do it comes up saying do not contact prescriber for a prior auth. Medicare is saying they need records in order to cover this prescription sent to them. * Hermelinda Zurita CMA - 08/07/2025 4:09 PM EST Pt called and left message that she in need of a refill of the freestyle jhonatan 3 + and that she only have 2 days left and that sander's want to talk the office Called and spoke to the pharmacy they give me the number for [facility] medicare # [phone] sander to find out what needed documented in this encounter Plan of Treatment Upcoming Encounters Date Type Department Care Team (Late st Contact Info) Description 08/15/2025 1:10 PM EST Office Visit [facility] Endocrinology Clinic [address] [place] [address] Waleska Cochran PA-C [address] [place] [address] 10/04/2025 10:40 AM EST Office Visit [facility] Endocrinology [address] [place] [address] Stephanie Vasquez MD [address] [place] [phone] documented as of this encounter Visit Diagnoses Not on filedocumented in this encounter Care Teams Physical Trainer Relationship Specialty Start Date End Date Tomás Bassett MD [address] [place] [phone] [email or web address] PCP - General Internal Medicine 07/18/20 documented as of this encounter Additional Source Comments The information contained in this document represents components of the legal health record. It is not the complete legal health record.[facility]
--- OUTSIDE RECORDS SUMMARY | 2025-08-15 12:05 | XMS_ITS | Encounter Summary ---
Author Organization [facility] Address [address] [place] [address] Care Team Providers Care Press Loader Name Role Phone Tomás Bassett MD Primary Care Provider [phone] Wade Jackson MD Unavailable [phone] Encounter Details Date Type Department Care Team (Late st Contact Info) Description 08/31/2019 Scanned Document [facility] NEUROSURGERY SCAN Neurosurgery, Scan Social History [...] Info) Description 09/13/2025 10:00 AM EST Appointment [facility] [address] [place] [phone] Wade Jackson MD [address] [place] [address] [place] [address] 09/24/2025 11:20 AM EST Office Visit [facility] [address] [place] [phone] Wade Jackson MD [address] [place] [address] [place] [address] 10/09/2025 4:00 PM EST Consult [facility] [address] [place] [phone] Keven Casanova MD [address] [facility] [address] [place] [address] documented as of this encounter Visit Diagnoses Not on filedocumented in this encounter Care Teams Press Loader Relationship Specialty Start Date End Date Tomás Bassett MD [address] [place] [address] PCP - General Internal Medicine 01/31/20 Wade Jackson MD [address] [place] [address] Primary Food Sampler Cardiovascular Disease 12/21/24 documented as of this encounter
--- OUTSIDE RECORDS SUMMARY | 2025-08-15 12:05 | XMS_ITS | Encounter Summary ---
Author Organization [facility] Address [address] [place] [address] Care Team Providers Care Route Cdl Driver Name Role Phone Tomás Bassett MD Primary Care Provider [phone] Wade Jackson MD Unavailable [phone] Encounter Details Date Type Department Care Team (Late st Contact Info) Description 09/12/2019 Scanned Document [facility] NEUROSURGERY SCAN Neurosurgery, Scan Social [...] [facility] [address] [place] [phone] Wade Jackson MD [address] [place] [address] [place] [phone] 09/24/2025 11:20 AM EST Office Visit [facility] [address] [place] [phone] Wade Jackson MD [address] [place] [address] [place] [address] 10/09/2025 4:00 PM EST Consult [facility] [address] [facility] [address] [place] [phone] Keven Casanova MD [address] [facility] [address] [place] [address] documented as of this encounter Visit Diagnoses Not on filedocumented in this encounter Care Teams Route Cdl Driver Relationship Specialty Start Date End Date Tomás Bassett MD [address] [place] [address] PCP - General Internal Medicine 01/31/20 Wade Jackson MD [address] [place] [address] Primary Electrical Engineer Mep Cardiovascular Disease 12/21/24 documented as of this encounter
--- OUTSIDE RECORDS SUMMARY | 2025-08-15 12:05 | XMS_ITS ---
Author Name [facility] Organization Unknown History of Medication Use Medication Directions Dispensed Refills Start Date End Date Stat us Ozempic, 2 MG/DOSE, 8 MG/3ML prefilled pen injection 11/10/2024 active Trelegy Ellipta 200-62.5-25 MCG/ACT inhaler 09/28/2024 active doxycycline (VIBRAMYCIN) 50 MG capsule Take 1 capsule (50 mg total) by mouth. 02/03/2024 active hydroCHLOROthiazide (HYDRODIURIL) 25 MG tablet Take 0.5 tablets (12.5 mg total) by mouth. 02/03/2024 active Insulin Pen Needle (B-D ULTRAFINE III SHORT PEN) 31G X 8 MM Misc 1 each by Other (specify) route. 02/18/2023 active ciprofloxacin (CIPRO) 500 MG tablet Take 1 tablet (500 mg total) by mouth 2 (two) times a day. 01/31/2020 active amLODIPine (NORVASC) 5 MG tablet 01/23/2020 active simvastatin (ZOCOR) 40 MG tablet 12/25/2019 active HUMALOG MIX 75/25 (75-25) 100 UNIT/ML injection 12/12/2019 act miguel angel clindamycin (CLEOCIN-T) 1 % lotion HENOK EXT AA QD 12/08/2019 active valACYclovir (VALTREX) 1000 MG tablet TK 1 T PO TID FOR 7 DAYS 12/08/2019 active gabapentin (NEURONTIN) 600 MG tablet 12/06/2019 active njswtvkj-vquhiudui-plkamc ortisone (CORTISPORIN) 3.5-89692-4 otic suspension INSTILL 4 GTT IN EACH AFFECTED EAR TID X 7 DAYS 12/06/2019 active fluticasone-salmeterol (ADVAIR) 500-50 mcg/inh diskus inhaler 11/25/2019 active buPROPion (WELLBUTRIN XL) 150 MG 24 hr tablet 11/17/2019 activ e buPROPion (WELLBUTRIN XL) 300 MG 24 hr tablet 11/17/2019 activ e FLUoxetine (PROzac) 20 MG capsule 11/17/2019 active risperiDONE (RisperDAL) 2 MG tablet 11/17/2019 active acetaminophen (TYLENOL) 500 MG tablet Take 500 mg by mouth 4 times daily (every 6 hours) as needed for mild pain. active aspirin 81 MG chewable tablet Chew 81 mg daily. active busPIRone (BUSPAR) 30 MG tablet Take 1 tablet (30 mg total) by mouth 2 times a day. active docusate sodium (COLACE) 100 MG capsule Take 1 capsule (100 mg total) by mouth. active ibuprofen (MOTRIN) 800 mg tablet Take 800 mg by mouth 4 times daily (every 6 hours) as needed for mild pain. active No known medications No known medications active Allergies Allergen Reaction Severity Comment Documented Date Source Statu s METFORMIN SWELLING 01/31/2020 [facility] active CEPHALEXIN SWELLING [facility] CODEINE GI INTOLERANCE/NAUSEA/VOMITING [facility] LISINOPRIL SWELLING [facility] Problems Problem Status Onset Date Problem Type Date of Resoluti on Source Abnormal ECG active EncounterDiagnosisAct [facility] Encounter for consultation active EncounterDiagnosisAct [facility] Encounters Encounter Type Encounter Reason Primary Diagnosis Location Date Ambulatory Chest pain, unspecified Chest pa in, unspecified [facility] Ambulatory Abnormal electrocardiogram (ECG) (EKG) Abnormal electrocardiogram (ECG) (EKG) [facility] Ambulatory Counseling, unspecified Counseli ng, unspecified [facility] 5 Ambulatory [facility] 3 Ambulatory Pain in right wrist Pain in right wrist [facility] Team Organization Name Specialty Phone Email Start Date End Da te [facility] 08/06/2025 [facility] 07/05/2025 [facility] 06/21/2025 [facility] 03/29/2025 025 [facility] 12/26/2024 [facility] 05/20/2023 05/20/2023 [facility] 05/20/2023 [facility] 01/30/2023 [facility] Geri Alva MD Primary Care 05/22/2021 04/17/2024 [facility]
--- OUTSIDE RECORDS SUMMARY | 2025-08-15 12:05 | XMS_ITS | Encounter Summary ---
Author Organization [facility] Address [address] [place] [address] Care Team Providers Care Insurance Law Specialist Name Role Phone Tomás Bassett MD Primary Care Provider [phone] Wade Jackson MD Unavailable [phone] Encounter Details Date Type Department Care Team (Late st Contact Info) Description 08/31/2019 Scanned Document [facility] NEUROSURGERY SCAN Neurosurgery, Scan Social [...] Info) Description 09/13/2025 10:[address] [facility] [address] [place] [phone] Wade Jackson MD [address] [facility] [address] [address] [place] [address] [place] [id number] 09/24/2025 11:20 AM EST Office Visit [facility] [address] [place] [phone] Wade Jackson MD [address] [place] [address] [place] [address] 10/09/2025 4:00 PM EST Consult [facility] [address] [facility] [address] [place] [phone] Keven Casanova MD [address] [facility] [address] [place] [address] documented as of this encounter Visit Diagnoses Not on filedocumented in this encounter Care Teams Insurance Law Specialist Relationship Specialty Start Date End Date Tomás Bassett MD [address] [place] [address] PCP - General Internal Medicine 01/31/20 Wade Jackson MD [address] [place] [address] Primary Registered Dental Hygienist Cardiovascular Disease 12/21/24 documented as of this encounter
--- OUTSIDE RECORDS SUMMARY | 2025-08-15 12:06 | XMS_ITS | Patient Health Record ---
Author Organization [facility] Address [address] [place] [address] Care Team Providers Care Furniture Technician Name Role Phone MATILDE ELÍAS Unavailable [phone] COLLEEN SAENZ Unavailable [phone] PAMELA HAQUE Unavailable [phone] Allergies Allergen (clinical drug ingredient) Drug/Non Drug Allergy documented on EMR Reaction Allergy Type Onset Date Status cephalexin Cephalexin tongue swelling Drug Allergy Active lisinopril Lisinopril tongue swelling Drug Allergy Active codeine Codeine nausea Drug Allergy Active metformin metFORMIN elevated lactic acid Drug Allergy Active Reason For Referral Reason (APPT 10/09/25) iron deficiency anemia Referral Organization [facility] Referring Provider First Name ELÍAS Referring Provider Last Name MATILDE Referring Provider Speciality Internal M edicine Referred Provider ANGE CASANOVA Referred Provider Specialty Gastroentero logy General Notes Lynnette PORTILLO Referrals 06/18/2025 12:18:54 PM > doctor referral with notes have been faxed to [facility] at [phone], Thao PORTILLO Manager Adult 07/03/2025 02:39:52 PM > Appt changed to Dr. Casanova per Dr. Bassett's request please cx with [facility]MBAND[facility] FORBES Lisa K Referrals 07/03/2025 03:36:45 PM > doctors referral and notes have been faxed to [facility] at [phone], called [facility] and cancelled referral, Sandie PORTILLO Support Services Major Gifts Manager 07/05/2025 04:25:04 PM > Per message from Pt - She is schedule on 10/09/25 Referral Priority Routine Referral Appointment Date 10/09/2025 Medications Medication SIG (Take, Route, Frequency, Duration) Notes Start Date End Date Status Shanel Ellipta 200-62.5-25 MCG/ACT Aerosol Powder Breath Activated 1 puff Inhalation Once a day Active buPROPion HCl ER (SR) 150 MG Tablet Extended Release 12 Hour 1 tab(s) orally 1 times a day in hte evening Active buPROPion HCl ER (XL) 300 MG Tablet Extended Release 24 Hour 1 tablet in the morning Orally Once a day in the AM Active Tylenol Extra Strength 500 M G Tablet 2 tab(s) orally Q4H prn pain Active Simvastatin 40 mg Tablet TAKE 1 TABLET D AILY AT BEDTIME orally once a day; Duration: 90 days Active Albuterol Sulfate (2.5 MG/3ML) 0.083% Nebulization Solution 3 mL by nebulizer every 6 hours prn 09/22/2021 Active Aspirin 81 MG Tablet Delayed Release 1 tablet Orally Once a day Active Doxycycline Hyclate 50 MG Capsule 1 capsule Orally Twice a day Active Gabapentin 600 MG Tablet 1 tablet Orally four times a day Active Ozempic (2 MG/DOSE) 8 MG/3ML Solution Pen-injector 2 mg Subcutaneous qwk Active HumaLOG Mix 75/25 (75-25) 10 0 UNIT/ML Suspension 75 units am, as needed for evening dosing subcutaneously twice daily Active hydroCHLOROthiazide 25 mg Tablet TAKE ONE-HALF (1/2) TABLET DAILY IN THE MORNING orally once daily; Duration: 90 days Active RisperDAL 2 MG Tablet 1 tab(s) orally on ce a day Active FLUoxetine HCl 20 MG Capsule 3 cap(s) orally qd Active Colace 100 MG Capsule 2 caps orally once a day Active Multiple Vitamin - Tablet Chewable 1 tab(s) orally once a day Active amLODIPine Besylate 5 mg Tablet TAKE 2 TABLETS ONCE DAILY orally once daily; Duration: 90 days Active Iron 325 (65 Fe) MG Tablet 1/2 tab Orall y Once a day Active busPIRone HCl 30 MG Tablet 1 tab orally twice a day Active Immunizations Vaccine Route Administration Date Status Comme nts Tdap (Adacel) IM Intramuscular 05/20/2017 Administered Td (adult) Unknown 05/31/2009 Administered SHINGRIX HZV VACCINE IM Intramuscular 06/18/2020 Administered SHINGRIX HZV VACCINE IM Intramuscular 09/09/2020 Administered [id number] Unknown 07/19/2024 Administered Pneumococcal (PPV23, adult) IM Intramuscular 09/26/2012 Administered Moderna COVID-19 mRNA LNP-S PF IM Intramuscular 11/08/2020 Administered Lot#: [id number] Moderna COVID-19 mRNA LNP-S PF IM Intramuscular 12/03/2020 Administered Moderna COVID-19 mRNA LNP-S PF IM Intramuscular 07/19/2024 Administered Influenza, Fluzone Quad.5 ml, IM Intramuscular 05/28/2016 Administered Influenza, Fluzone QUAD, 3+ yrs, IM Intramuscular 06/17/2018 Administered Influenza, Fluzone Quad IM Intramuscular 06/18/2020 Administered Influenza, Flublok IM Intramuscular 06/21/2019 Administere d Influenza, Flublok IM Intramuscular 06/07/2021 Administere d Influenza IM Intramuscular 05/10/2009 Administered Influenza Unknown 07/21/2011 Administered Influenza Unknown 05/10/2012 Administered Influenza IM Intramuscular 06/01/2025 Administered walgre en H1N1 inactivated injectable IM Intramuscular 09/09/2009 Administered FLU- FLUVIRIN, PRE-FILLED SYRINGE 0.5 ml Unknown 06/20/2013 Administered FLU- FLUVIRIN, PRE-FILLED SYRINGE 0.5 ml IM Intramuscular 07/04/2014 Administered preservative free, csl biotherapie Social History Tobacco Use: Social History Observation Description Date Details (start date - stop date) Former Smoker NA - NA Social History Tobacco Use: Social Info Question Answer Notes Smoking Are you a: former smoker How long has it been since you last smoked? 1-5 years Additional Details Category Social Info Options Details General Occupation: Disabled asbestos exposure: no Past year's travels: none 2021 alcohol use: no drug use: No Hobbies/Exercise habits: none Coffee/Tea/Soda: yes 6-8 tea/d, no c offee, Diet Soda occ Marital Status experience no Living with Pets 3 dogs smokers in household yes smo kes outside, pt former smoker Section Notes: 30 cig/d x 40 years 20 cig/d x 40 years; stopped cigarettes 04/14/21, stopped vaping 05/06/2021 20 cig/d x 40 years 20 cig/d x 40 years; stopped cigarettes 04/14/21, stopped vaping 05/06/2021 30 cig/d x 40 years 20 cig/d x 40 years; stopped cigarettes 2 wks ago, stopped vaping 05/06/2021 20 cig/d x 40 years; stopped cigarettes 2 wks ago, stopped vaping 05/06/2021 30 cig/d x 40 years 30 cig/d x 40 years 30 cig/d x 40 years 20 cig/d x 40 years 20 cig/d x 40 years 20 cig/d x 40 years; stopped cigarettes 04/14/21, stopped vaping 05/06/2021 20 cig/d x 40 years; stopped cigarettes 04/14/21, stopped vaping 05/06/2021 30 cig/d x 40 years 20 cig/d x 40 years; stopped cigarettes 2 wks ago, vapes 1 pod per day 30 cig/d x 40 years 30 cig/d x 40 years 30 cig/d x 40 years 20 cig/d x 40 years; stopped cigarettes 04/14/21, stopped vaping 05/06/2021 30 cig/d x 40 years 30 cig/d x 40 years 20 cig/d x 40 years 20 cig/d x 40 years 20 cig/d x 40 years; stopped cigarettes 04/14/21, stopped vaping 05/06/2021 30 cig/d x 40 years 20 cig/d x 40 years; stopped cigarettes 04/14/21, stopped vaping 05/06/2021 20 cig/d x 40 years 20 cig/d x 40 years; stopped cigarettes 04/14/21, stopped vaping 05/06/2021 20 cig/d x 40 years; stopped cigarettes 2 wks ago, vapes 1 pod per day 20 cig/d x 40 years; stopped cigarettes 2 wks ago, stopped vaping 05/06/2021 20 cig/d x 40 years; stopped cigarettes 04/14/21, stopped vaping 05/06/2021 20 cig/d x 40 years; stopped cigarettes 04/14/21, stopped vaping 05/06/2021 20 cig/d x 40 years; stopped cigarettes 04/14/21, stopped vaping 05/06/2021 20 cig/d x 40 years; stopped cigarettes 04/14/21, stopped vaping 05/06/2021 20 cig/d x 40 years; stopped cigarettes 04/14/21, stopped vaping 05/06/2021 20 cig/d x 40 years; stopped cigarettes 04/14/21, stopped vaping 05/06/2021 20 cig/d x 40 years; now 1/ ppd 20 cig/d x 40 years; stopped cigarettes 2 wks ago, vapes 1 pod per day 30 cig/d x 40 years 20 cig/d x 40 years 20 cig/d x 40 years 20 cig/d x 40 years; stopped cigarettes 04/14/21, stopped vaping 05/06/2021 20 cig/d x 40 years; stopped cigarettes 04/14/21, stopped vaping 05/06/2021 30 cig/d x 40 years 30 cig/d x 40 years 30 cig/d x 40 years 30 cig/d x 40 years 30 cig/d x 40 years 20 cig/d x 40 years 20 cig/d x 40 years 20 cig/d x 40 years 20 cig/d x 40 years; stopped cigarettes 04/14/21, stopped vaping 05/06/2021 30 cig/d x 40 years 20 cig/d x 40 years 20 cig/d x 40 years 20 cig/d x 40 years; stopped cigarettes 2 wks ago, stopped vaping 05/06/2021 20 cig/d x 40 years; stopped cigarettes 04/14/21, stopped vaping 05/06/2021 20 cig/d x 40 years; stopped cigarettes 04/14/21, stopped vaping 05/06/2021 20 cig/d x 40 years 20 cig/d x 40 years 20 cig/d x 40 years; stopped cigarettes 2 wks ago, stopped vaping 05/06/2021 20 cig/d x 40 years Problems Problem Type SNOMED Code ICD Code Onset Dates Problem Status W/U Status Risk Notes Problem Diabetes mellitus type II (07351225) Diabetes mellitus type II (250.00) Active confirmed Problem Lactic acidosis (56030997) Lactic acidosis (276.2) Active confirmed Problem Essential hypertension (61425531) HTN [Hypertension] (401.9) Active confirmed Problem Peripheral vascular disease (645662951) Claudication, intermittent (443.9) Active confirmed Low Problem COPD - Chronic obstructive pulmonary disease (21179738) COPD [Chronic obstructive pulmonary disease] (496) Active confirmed Problem Hypercholesterolemia (76551557) Hypercholesterolemia (272.0) Active confirmed Problem Urinary frequency (046943468) Urinary frequency (788.41) Active confirmed Problem General examination of patient (387252849) ROUTINE MEDICAL EXAM (V70.0) Active confirmed Problem Benign neoplasm of colon (36902245) H/o colon adenoma (211.3) Active confirmed Problem Insomnia (627340798) Insomnia (G47.00) Active c onfirmed Problem Gastroesophageal reflux disease (556661745) GERD (gastroesophageal reflux disease) (K21.9) Active confirmed Problem Back pain (395582241) Back pain (M54.9) Active confirmed Problem Cough (99025030) Cough (R05) Active confirmed Problem Headache (28578850) Headache (R51) Active confi rmed Problem Dyspnea (463755899) Dyspnea (R06.00) Active con firmed Problem Essential hypertension (50984094) HTN (hypertension), benign (I10) Active confirmed Problem Essential hypertension (71402342) Essential (primary) hypertension (I10) Active confirmed Problem Flatulence, eructation and gas pain (531413804) Bloating (R14.0) Active confirmed Problem Screening for breast cancer (718109667) Screening for breast cancer (Z12.39) Active confirmed Problem Hip pain (55295377) Hip pain (M25.559) Active c onfirmed Problem Constipation (85778368) Constipation (K59.00) Active confirmed Problem Chronic obstructive pulmonary disease (71028676) Chronic obstructive pulmonary disease, unspecified (J44.9) Active confirmed Problem History of polyp of colon (situation) (502465655) Personal history of colonic polyps (Z86.010) Active confirmed Problem Pain in limb (89171707) Pain in limb (M79.609) Active confirmed Problem Hypercalcemia (18626508) Hypercalcemia (E83.52) Active confirmed Problem Iron deficiency anemia (13078110) Other iron deficiency anemias (D50.8) Active confirmed Problem Hyperglycemia due to type 2 diabetes mellitus (213538756779811) Type 2 diabetes mellitus with hyperglycemia (E11.65) Active confirmed Problem Tobacco user (504485456) Nicotine dependence, cigarettes, uncomplicated (F17.210) Active confirmed Problem Dysthymia (89449349) Dysthymic d isorder (F34.1) Active confirmed Problem Atelectasis (54868089) Atelectasis (J98.11) Active confirmed Problem Sciatica (63238136) Lumbago with sciatica, right side (M54.41) Active confirmed Problem Sciatica (24437814) Lumbago with sciatica, left side (M54.42) Active confirmed Problem Pain in left foot (387620843519828) Pain in left foot (M79.672) Active confirmed Problem Facial weakness (53776759) Facial weakness (R29.810) Active confirmed Problem Long-term current us e of insulin (511168172) senior care (current) use of insulin (Z79.4) Active confirmed Problem Diabetic peripheral neuropathy associated with type 2 diabetes mellitus (0337008871655) Type 2 diabetes mellitus with peripheral neuropathy (E11.40) Active confirmed Problem Bilateral tinnitus (7602481836850) Tinnitus of both ears (H93.13) Active confirmed Problem Obese class II (663687899284740) BMI 35.0-35.9,adult (Z68.35) Active confirmed Problem Mass of thoracic structure (607395261) Mass in chest (R22.2) Active confirmed Problem Abscess (29795962) Abscess (L02.91) Active conf irmed Problem alanine aminotransferase above reference range (finding) (350533423) Elevated ALT measurement (R74.0) Active confirmed Problem Moderate chronic obstructive pulmonary disease (607364479) Moderate COPD (chronic obstructive pulmonary disease) (J44.9) Active confirmed Problem Skin sensation disturbance (12244179) Paresthesia of bilateral legs (R20.2) Active confirmed Problem Breast pain (33837937) Breast pain (N64.4) Active confirmed Problem Chronic sinusitis (16887726) Sinus disease (J34.9) Active confirmed Problem Type 2 diabetes mellitus (27458431) DM type 2 (diabetes mellitus, type 2) (E11.9) Active confirmed Problem Acute exacerbation o f chronic obstructive airways disease (915434269) Acute exacerbation of chronic obstructive pulmonary disease (COPD) (J44.1) Active confirmed Problem Edema (042304524) Edema, unspeci fied type (R60.9) Active confirmed Problem Pain of skin (934088086) Pain of skin (R20.8) Active confirmed Problem Chronic constipation (901559329) Chronic constipation (K59.09) Active confirmed Problem Pain in limb (32464264) Pain in thumb joint with movement, right (M79.644) Active confirmed Problem Poor balance (428967673) Poor balance (R26.89) Active confirmed Problem Pain of left heel (1075365652333849) Pain of left heel (M79.672) Active confirmed Problem Inflammatory and toxic neuropathy (596014031) Peripheral polyneuropathy (G62.9) Active confirmed Problem Pure hypercholesterolemia (202098228) Pure hypercholesterolemia, unspecified (E78.00) Active confirmed Problem Spinal stenosis (13647987) Spinal stenosis, unspecified spinal region (M48.00) Active confirmed Problem Tongue swelling (605336155) Tongue swelling (R22.0) Active confirmed Problem Allergic reactio n caused by a drug, subsequent encounter (T78.40XD) Active confirmed Problem Exacerbation of moderate persistent asthma (disorder) (764646345) Moderate persistent reactive airway disease with acute exacerbation (J45.41) Active confirmed Problem Brain mass (088666670) Brain mass (G93.89) Active confirmed Problem Mixed anxiety and depressive disorder (565782056) Depression with anxiety (F41.8) Active confirmed Problem Primary malignant neoplasm of right lung (618218532) Primary malignant neoplasm of right lung (C34.91) Active confirmed Vital Signs Blood pressure diastolic 62 mm Hg 07/03/2025 Height 66 in 07/03/2025 Blood pressure systolic 124 mm Hg 07/03/2025 Weight 201.8 lbs 07/03/2025 BMI 32.57 kg/m2 07/03/2025 Encounters Encounter Location Date Provider Diagnosis [place] [phone] 10/20/2024 PAMELA HAQUE Acute cough R05.1 an d Encounter for laboratory testing for COVID-19 virus Z20.[address] [address] 10/20/2024 ELÍAS RO Symptoms of upper respiratory infection (URI) R09.89 [place] [phone] 01/09/2025 ELÍAS RO Symptoms of upper respiratory infection (URI) R09.89 ; Essential (primary) hypertension I10 ; Moderate COPD (chronic obstructive pulmonary disease) J44.9 ; Type 2 diabetes mellitus with hyperglycemia E11.65 ; Tobacco abuse Z72.0 ; Brain mass G93.89 ; BMI 35.0-35.9,adult Z68.35 ; Pure hypercholesterolemia, unspecified E78.00 ; Dysthymic disorder F34.1 ; Lumbago with sciatica, right side M54.41 ; Lumbago with sciatica, left side M54.42 ; Spinal stenosis, unspecified spinal region M48.00 ; Paresthesia of bilateral legs R20.2 ; Tinnitus of both ears H93.13 ; GERD (gastroesophageal reflux disease) K21.9 ; Elevated ALT measurement R74.0 ; Snoring R06.83 ; Leg weakness, bilateral R29.898 ; Poor balance R26.89 ; Heartburn R12 ; Hypercalcemia E83.52 ; Pain of right thumb M79.644 ; Pain of left thumb M79.645 ; Lower extremity edema R60.0 and Primary malignant neoplasm of right lung C34.91 [place] [address] 03/07/2025 ELÍAS BASSETT Lower extremity marek a R60.0 and Simple varicose veins I83.90 [place] [address] 06/04/2025 ELÍAS BASSETT Tremor R25.1 ; Lower extremity edema R60.0 and Alopecia L65.9 [place] [address] 07/03/2025 ELÍAS BASSETT Tremor R25.1 ; Other iron deficiency anemias D50.8 ; Lower extremity edema R60.0 ; Alopecia L65.9 ; Low TSH level R79.89 and Type 2 diabetes mellitus with hyperglycemia E11.65 [place] [phone] 10/20/2024 [place] [address] 10/20/2024 [place] [address] 11/12/2024 ELÍAS BASSETT [place] [phone] 01/16/2025 [place] [address] 01/18/2025 ELÍAS RO [facility] [address] [facility] [place] [address] 03/07/2025 ELÍAS RO [facility] [address] [place] [address] 03/07/2025 ELÍAS RO [facility] [address] [place] [address] 03/08/2025 ELÍAS BASSETT [facility] [address] [place] [address] 06/01/2025 ELÍAS BASSETT [facility] [address] [place] [address] 06/13/2025 ELÍAS BASSETT [facility] [address] [place] [address] 06/13/2025 ELÍAS BASSETT [facility] [address] [place] [address] 07/03/2025 ELÍAS BASSETT [facility] [address] [place] [address] 07/05/2025 ELÍAS BASSETT [facility] [address] [place] [address] 07/10/2025 ELÍAS [facility] [address] [place] [address] 07/20/2025 [facility] [address] [place] [address] 07/22/2025 ELÍAS BASSETT Breast cancer screening by mammogram Z12.31 [facility] [address] [place] [address] 11/12/2024 ELÍAS MATILDE [facility] [address] [place] [address] 01/27/2025 ELÍAS [facility] [address] [place] [address] 01/29/2025 ELÍAS [facility] [address] [facility] [place] [address] 01/29/2025 ELÍAS [facility] [address] [place] [address] 03/07/2025 ELÍAS [facility] [address] [place] [address] 03/08/2025 ELÍAS BASSETT [facility] [address] [place] [address] 05/28/2025 ELÍAS BASSETT Essential (primary) hypertension I10 [facility] [address] [place] [address] 07/05/2025 ELÍAS MATILDE [facility] [address] [place] [address] 07/05/2025 ELÍAS MATILDE [facility] [address] [place] [address] 07/09/2025 ELÍAS BASSETT Essential (primary) hypertension I10 [facility] [address] [place] [address] 07/09/2025 ELÍAS MATILDE [facility] [address] [place] [address] 07/09/2025 ELÍAS BASSETT Assessments Encounter Date Diagnosis (ICD Code) Assessment Notes Treatment Notes Treatment Clinical Notes Section Notes 10/20/2024 Acute cough (ICD-10 - R05.1) 10/20/2024 Symptoms of upper respiratory infection (URI) (ICD-10 - R09.89) rest/fluids; salt water gargle QID and chloraseptic spray prn; can start flonase 2 sprays qd 05/28/2025 Essential (primary) hypertension (ICD-10 - I10) 06/04/2025 Tremor (ICD-10 - R25.1) prob essential tremor; declines mri brain; consider neuro eval 06/04/2025 Lower extremity edema (ICD-10 - R60.0) prob related to varicose vein vs dependent vs elevated right sided pressure-conside r vascular eval, ct abd/pel, echo, sleep study 07/03/2025 Tremor (ICD-10 - R25.1) prob essential tremor; declines mri brain; consider neuro eval once repeat thyroid studies return 07/03/2025 Other iron deficiency anemias (ICD-10 - D50.8) see Dr Casanova for iron deficiency anemia 07/22/2025 Breast cancer screening by mammogram (ICD-10 - Z12.31) 01/09/2025 Essential (primary) hypertension (ICD-10 - I10) good control < 140/90; low sodium diet reviewed 01/09/2025 Symptoms of upper respiratory infection (URI) (ICD-10 - R09.89) resolved 03/07/2025 Lower extremity edema (ICD-10 - R60.0) DDX includes varicose vein vs med vs OA in knees vs doubt CHF, right sided failure, liver/kidney process or proteinuria; if no dvt, plan compression stockings; elevate LE; consider increasing HCTZ and decreasing amlodipine; pt has echo booked for end of this month; consider CT abd/pel 03/07/2025 Simple varicose veins (ICD-10 - I83.90) consider vascualr eval; compression stockings 07/09/2025 Essential (primary) hypertension (ICD-10 - I10) 01/09/2025 Moderate COPD (chronic obstructive pulmonary disease) (ICD-10 - J44.9) good control; f/u with Dr Mcgrath 07/03/2025 Lower extremity edema (ICD-10 - R60.0) prob related to varicose vein vs dependent vs elevated right sided pressure-conside r vascular eval, ct abd/pel, echo, sleep study once LE u/s returns 06/04/2025 Alopecia (ICD-10 - L65.9) unclear etiology-conside r derm eval 10/20/2024 Encounter for laboratory testing for COVID-19 virus (ICD-10 - Z20.828) Nasal swab collected and submitted; pt instructed to self isolate until results of covid testing come back and to call if symptoms progress. Advised that the ordering provider or PCP will contact with the results of the test. 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 01/09/2025 BMI 35.0-35.9,adult (ICD-10 - Z68.35) diet, exercise and weight loss advised 01/09/2025 Pure hypercholesterole aleja, unspecified (ICD-10 - E78.00) low fat/cholesterol diet reviewed 01/09/2025 Dysthymic disorder (ICD-10 - F34.1) stable; managed by psychiatrist-Dr Saucedo every 3 months 01/09/2025 Lumbago with sciatica, right side (ICD-10 - M54.41) stable 01/09/2025 Lumbago with sciatica, left side (ICD-10 - M54.42) see plan under Lumbago with sciatica, right side 01/09/2025 Spinal stenosis, unspecified spinal region (ICD-10 - M48.00) had surgery in 04/[address] Briggs; better but still with chronic pain-see Dr Cochran 01/09/2025 Paresthesia of bilateral legs (ICD-10 - R20.2) improved on gabapentin 01/09/2025 Tinnitus of both ears (ICD-10 - H93.13) f/u with ent 01/09/2025 GERD (gastroesophageal reflux disease) (ICD-10 - K21.9) stable on prn tums (rarely) 01/09/2025 Elevated ALT measurement (ICD-10 - R74.0) prob related to fatty infiltration; pt had ct showing fatty infiltration in the past and negative hep c, ferritin; will check hep b 01/09/2025 Snoring (ICD-10 - R06.83) pt will do sleep study 01/09/2025 Leg weakness, bilateral (ICD-10 - R29.898) better 01/09/2025 Poor balance (ICD-10 - R26.89) ?related to edema vs back pathology; offered MRI brain/c-spine-de clines 01/09/2025 Heartburn (ICD-10 - R12) good control 01/09/2025 Hypercalcemia (ICD-10 - E83.52) resolved 01/09/2025 Pain of right thumb (ICD-10 - M79.644) prob OA vs tendonitis; consider OT/ortho eval 01/09/2025 Pain of left thumb (ICD-10 - M79.645) consider OT/ortho eval 01/09/2025 Lower extremity edema (ICD-10 - R60.0) resolved 01/09/2025 Primary malignant neoplasm of right lung (ICD-10 - C34.91) f/u with Dr Mcgrath Plan Of Treatment Pending Test Test Name Order Date EKG 03/06/2021 LDCT Chest 02/18/2021 CBC W/OUT AUTOMATED DIFF 03/06/2021 Future Test Test Name Order Date URINE CULTURE 02/18/2015 BNP 01/21/2018 Rapid Strep 06/17/2018 LIPID PROFILE 08/02/2018 BASIC METABOLIC PANEL 08/02/2018 Urinalysis w/ Reflex Culture 08/02/2018 Rapid Strep 08/26/2018 LIPID PROFILE 06/21/2019 Hep B Surface Antigen 06/21/2019 CBC W/OUT AUTOMATED DIFF 06/21/2019 COMP. METABOLIC 06/21/2019 Urine Microalbumin(Creat/MALB Ratio) 25 OH Vitamin D 06/21/2019 TSH WITH REFLEX TO FT4 06/21/2019 GLYCOHEMOGLOBIN (HBA1C) 08/04/2019 Urine Microalbumin(Creat/MALB Ratio) LDCT Chest 01/12/2020 ALT(DO NOT USE) 08/07/2022 CULTURE GROUP A STREP 12/03/2022 GLYCOHEMOGLOBIN (HBA1C) 12/31/2022 BASIC METABOLIC PANEL 01/01/2023 CBC, Platelet, w/o Differential-[id number] 0 01/13/2024 Vitamin D, 67-Tqgfpjz-[id number] 01/13/2024 Comp. Metabolic Panel [id number] 2023 TSH Rfx on Abnormal to Free [id number] LP+NonHDL-[id number] 01/13/2024 Hep B Surface Ab, Qual-[id number] 07/13/2024 Hepatitis B Surface Antigen - [id number] Hep B Core Ab, IgM-[id number] 07/13/2024 TSH Rfx on Abnormal to Free [id number] LP+Non-HDL Cholesterol-[id number] 07/13/2024 Comp. Metabolic Panel [id number] 2023 US Lower Extremity Veins Duplex Bilatera l 03/07/2025 Thyroglobulin (TG-DEO)-[id number] 07/03/2025 Mammogram Screening Bilatera l, Perform ultrasound guided aspiration and/or breast biopsy if warranted 07/22/2025 Next Appt Details Provider Name:COLLEEN MCKEON DUNG, 09/11/2025 01:20:00 PM, [address] [place], [address], Insurance Providers Payer Name Payer Address Payer Phone Subscriber Number Group Number Insured Name Patient Relationship to Insured Coverage Start Date Coverage End Date MEDICARE [employer] [address] [place] [address] [id number] KI TROTTER Self - patient is the insured [address] [place] [place] [address] [id number] KI TROTTER Self - patient is the insured 5 Medical (General) History Medical History History ICD Code DEPRESSION-Dr. 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 Path: Tubular adenoma in the L colon & transv colon adrenal adenoma - 2013 - rig ht 1.5 cm HU -10; MRI 1.3 right, 1.5 left - imaging characteristics of benign adenoma; 2017 right 2.2 x 1.4 cm lung CA - squamous cell CA - s/p resecti on 2020 Covid- 19 Surgical History Surgery Date(Month/Year) back surgery 04/14/24 b/l great toe for ingrown nail Right lobectomy 05/06/21 b/l cataracts 02/2021 benign tongue cyst excision 08/04 hemorrhoidectomy x 1 Hospitalization History Reason Date(Month/Year) [facility] - weakness, SOB, unable to stand/wal k 03/2024 [facility]- SOB 11/2021 [facility] - [place] Palsy 06/2021 [facility] overnight 05/06/21 [facility] - bilateral leg swelling/pain 8 hemmorridectomy csection and vaginal deliveries
--- OUTSIDE RECORDS SUMMARY | 2025-08-15 12:06 | XMS_ITS | Clinical Summary ---
Author Organization [facility] Address [address] [place] [address] Phone Care Team Providers Care Credit Union Teller Name Role Phone Tomás Bassett MD Primary Care Provider [phone] Encounters Date Type Department Care Team Description 06/19/2025 Telephone Gastroenterology - [address] [address] Kain Webb MD from Last 3 Months Surgical History Surgery Date Site/Laterality Comments SECTION PROCEDURE: SECTION OTHER SURGICAL HISTORY PROCEDURE:Removal of non-cancerous cyst on tongue LUMBAR EPIDURAL INJECTION 04/28/2018 Bilateral PROCEDURE:LUMBAR EPIDURAL INJECTION;COMMENT:Procedure: BILATERAL L4-5 L5-S1 FACET JOINT INJECTION ANESTHETIC AGENT LUMBAR; Surgeon: Mayela Roger MD; Location: [facility]; Service: Rehab Medicine; Laterality: Bilateral; CATARACT EXTRACTION W/ INTRAOCULAR LENS IMPLANT 03/12/2021 Right PROCEDURE:CATARACT EXTRACTION W/ INTRAOCULAR LENS IMPLANT;COMMENT:Procedure: RIGHT EXTRACTION CATARACT WITH IOL IMPLANT; Surgeon: Herb Campos MD; Location: [facility]; Service: Ophthalmology; Laterality: Right; CATARACT EXTRACTION W/ INTRAOCULAR LENS IMPLANT 03/26/2021 Left PROCEDURE:CATARACT EXTRACTION W/ INTRAOCULAR LENS IMPLANT;COMMENT:Procedure: EXTRACTION CATARACT WITH IOL IMPLANT; Surgeon: Herb Campos MD; Location: [facility]; Service: Ophthalmology; Laterality: Left; Medical History Medical History Date Comments Diabetes mellitus (CMS/HCC V 24, CMS/HCC V28) DX:Diabetes mellitus (HCC) Hypertension DX:Hypertension Elevated cholesterol DX:Elevated cholesterol COPD (chronic obstructive pu lmonary disease) (CMS/HCC V24, CMS/HCC V28) DX:COPD (chronic o bstructive pulmonary disease) ([facility]) Anxiety DX:Anxiety Depression DX:Depression Urinary incontinence DX:Urinary incontinence;COMMENT:stress incontinence Diabetes mellitus, type II ( CMS/HCC V24, CMS/HCC V28) DX:Diabetes mellitus, type I I (HCC) Brain tumor (benign) (CMS/ C V24, CMS/HCC V28) DX:Brain tumor (benign) [...] Last Done Comments Breast Cancer Screening 1961 Colorectal Cancer Screening: Colonoscopy 1961 COVID-19 Vaccine (#1) 1966 Diabetes: Annual Foot Exam 1971 Diabetes: Annual Retina Eye Exam 1971 DTaP,Tdap,and Td Vaccines (1 - Tdap) 1980 Pneumococcal Vaccine: 50+ Years (1 of 2 - PCV) 1980 Zoster Vaccines (1 of 2) 1980 Cervical Cancer Screening: Pap Smear 1982 RSV Immunization Adult Patients (1 - Risk 50-74 years 1-dose series) 2011 Cholesterol Screening (Lipid Panel) 07/29/2022 HIV Screening 07/29/2022 Hepatitis C Screening 07/29/2022 Lung Cancer Screening (Low Dose CT) 07/29/2022 Medicare Annual Wellness Visit 07/29/2022 Social Influencers of Health Screening 07/29/2022 Diabetes: Blood Sugar Control Test (HGBA1C) 08/07/2022 12/19/2021 Diabetes: Annual GFR (Glomerular Filtration Rate) 12/20/2022 12/20/2021, 12/19/2021, 06/21/2020, Additional history exists Hypertension/CHF/CAD Annual BMP Blood Test 08/15/2024 12/20/2021, 12/19/2021, 06/21/2020, Additional history exists Depression Screening 08/30/2024 Influenza Vaccine (#1) 2025 08/01/2015 Diabetes: Annual Urine Albumin-Creatinine Ratio [...] this topic Medical Devices Implanted Type Area Obiee Report Developer Device Identifier Shelf Expiration Date Model / Serial / Lot [id number] Implanted:Qty: 1 on 03/12/2021 by Herb Campos MD Implants Right: Eye [facility] 01/03/2025 [id number] / [id number] / Lens Tecnis Simplicity Tecnis Protec Tri-Fix 13mm +24 Jn-Visn [id number] - [id number] Implanted:Qty: 1 on 03/26/2021 by Herb Campos MD Implants [facility] 07/15/2023 [id number] / [id number] / Insurance MEDICARE MEDICAID - [place] [facility] Advance Directives Documents on File Type Date Recorded Patient Construction [employer] Expl anation Health Care Decision (hx) 05/06/2021 AD ROSENBERG DIRECTIVE Health Care Decision (hx) 05/06/2021 AD ROSENBERG DIRECTIVE Health Care Decision (hx) 05/06/2021 AD ROSENBERG DIRECTIVE Health Care Decision (hx) 05/06/2021 PREMA ROSENBERG DIRECTIVE Care Teams Credit Union Teller Relationship Specialty Start Date End Date Tomás Bassett MD [address] [place] [address] PCP - General Internal Medicine 06/19/25
--- OUTSIDE RECORDS SUMMARY | 2025-08-15 12:07 | XMS_ITS | Clinical Summary ---
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 Malignant neoplasm of upper [...] 97 01/06/2022 10:01 AM EDT Temperature 37.2 C (99 F) 01/06/2022 10:01 AM EDT Respiratory Rate 20 12/20/2021 7:08 [...] Vaccine (1 of 2 - PCV) 1967 Pneumococcal Vaccine (1 of 2 - PCV) [...] years 1-dose series) 2021 Influenza Vaccine (#1) 2025 0, 08/01/2015 Shingrix-Zoster Vaccine Completed 09/06/19 21, 06/18/2020 Hepatitis B Vaccines Aged Out No long er eligible based on patient's age to complete this topic RSV Ped < 20 months Aged Out No longe r eligible based on patient's age to complete this topic Medical Devices Implanted Type Area Police And Fire Dispatcher Device Identifier Shelf Expiration Date Model / Serial / Lot [id number] Implanted:Qty: 1 on 03/12/2021 by Herb Campos MD at [facility] Location Lens Right: Eye [employer] 01/03/2025 [id number] / [id number] / Lens Tecnis Simplicity Tecnis Protec Tri-Fix 13mm +24 Jnj-Visn [id number] - [id number] Implanted:Qty: 1 on 03/26/2021 by Herb Campos MD at [facility] Location Lens [facility] 07/15/2023 [id number] / [id number] / Advance Directives For more information, please contact: [phone] Documents on File Type Date Recorded Patient Wholesale Buyer Expl anation Power of Safety Attendant 01/07/2015 1:20 PM Latest Code Status on [...] way: discussion with patient . Care Teams Picture Hanger Relationship Specialty Start Date End Date Tomás Bassett MD [address] [place] [address], [place] [address] PCP - General Internal Medicine 05/11/14
== END 2025-08-15 10:44 | disposition home or self-care (01) ==
PROVIDERS: PCP Internal Medicine; Visit Provider Hospitalist
DX: R91.8 Other nonspecific abnormal finding of lung field (principal); J41.0 Simple chronic bronchitis; C34.91 Malignant neoplasm of unspecified part of right bronchus or lung; I25.10 Atherosclerotic heart disease of native coronary artery without angina pectoris; R06.09 Other forms of dyspnea
CPT/HCPCS: 99214

== ENCOUNTER → 2025-08-15 09:58 | Outpatient (BNVA) | payer MEDICARE, SELFPAY | PROVIDERS: PCP Internal Medicine; Visit Provider Hospitalist | DX: J41.0 Simple chronic bronchitis (principal); C34.91 Malignant neoplasm of unspecified part of right bronchus or lung; R91.8 Other nonspecific abnormal finding of lung field; I25.10 Atherosclerotic heart disease of native coronary artery without angina pectoris; R06.00 Dyspnea, unspecified | CPT/HCPCS: 99212 ==